=== PATIENT | female | born 1945 | race Caucasian/White ===

== ENCOUNTER 2017-04-03 08:56 | Emergency (ER) | payer MEDICARE, OTHER ==
[2017-04-03 09:23] VITALS: BP 166/84
--- NOTE | 2017-04-03 10:47 | EDM.PDOC ---
ED HPI GENERAL MEDICAL PROBLEM - General Chief Complaint: General Stated Complaint: DIZZINESS Time Seen by Provider: 04/03/17 09:05 Source of Information: Reports: Patient, Significant Other History Limitations: Reports: No Limitations - History of Present Illness INITIAL COMMENTS - FREE TEXT/NARRATIVE: Patient comes in with about a week history of positional lightheadedness/ dizziness. She was seen in clinic last week and put on antibiotics for sinusitis and 12.5 mg meclizine as needed. The symptoms improved the first few days but were worse again today. Onset: Gradual Onset Date: 03/27/17 Onset Time: 10:00 Duration: Day(s):, Waxing/Waning Location: Reports: Head Severity: Moderate Improves with: Reports: Medication Worsens with: Reports: Movement Associated Symptoms: Denies: Confusion, Chest Pain, Diaphoresis, Fever/Chills, Headaches, Rash, Seizure, Shortness of Breath, Weakness (patient states feels occasional palpitations and anxiety when moving around and dizzy. Has noted increased BP when anxious. Symptoms resolve at rest.) - Related Data Allergies Allergy/AdvReac Type Severity Reaction Status Date / Time atorvastatin [From Lipitor] Allergy Other Verified 04/03/17 09:14 ezetimibe [From Zetia] Allergy Other Verified 04/03/17 09:14 Home Meds: Home Meds ALPRAZolam [Xanax] 0.25 mg PO DAILY PRN 07/19/16 [History] Acetaminophen [Tylenol Extra Strength] 250 mg PO Q4H PRN 07/19/16 [History] Acetaminophen/Diphenhydramine [Tylenol Pm Ex-Strength Caplet] 2 tab PO BEDTIME PRN 07/19/16 [History] Calcium Carbonate/Vitamin D3 [Calcium 500-Vit D3 200 Caplet] 1 tab PO DAILY 03/27 [History] Cyanocobalamin (Vitamin B-12) [Vitamin B-12] 500 mcg PO DAILY 07/19/16 [History] Lisinopril [Zestril] 30 mg PO DAILY 07/19/16 [History] Pravastatin [Pravachol] 20 mg PO DAILY 07/19/16 [History] SUMAtriptan [Imitrex] 50 mg PO DAILY PRN MDD 100 mg 07/19/16 [History] Sertraline [Zoloft] 25 mg PO DAILY 07/19/16 [History] Verapamil [Calan SR] 240 mg PO DAILY 07/19/16 [History] Acetaminophen/HYDROcodone [[place] 325-5 MG] 1 tab PO Q4H #30 tablet 07/22/16 [Rx] Docusate Sodium [Colace] 100 mg PO DAILY #30 cap 07/22/16 [Rx] Enoxaparin Sodium [Lovenox] 30 mg SQ BID #8 ml 07/22/16 [Rx] Sulfamethoxazole/Trimethoprim [IJD: Sulfamethoxazole/Trimethoprim DS] 1 tab PO BID 3 Days tablet 07/22/16 [Rx] Past Medical History Cardiovascular History: Reports: High Cholesterol, Hypertension Gastrointestinal History: Reports: GERD, Hiatal Hernia Other Genitourinary History: overactive bladder Other OB/BYN History: hysterctomy Musculoskeletal History: Reports: Arthritis Neurological History: Reports: Migraines Psychiatric History: Reports: Anxiety Endocrine/Metabolic History: Reports: Obesity/BMI 30+ Oncologic (Cancer) History: Reports: Breast Other Oncologic History: left - Infectious Disease History Infectious Disease History: Reports: Chicken Pox, Mumps - Past Surgical History HEENT Surgical History: Reports: Tonsillectomy GI Surgical History: Reports: Appendectomy, Hernia Repair/Other Female Surgical History: Reports: Hysterectomy Musculoskeletal Surgical History: Reports: Arthroscopic Knee, Knee Replacement Oncologic Surgical History: Reports: Lumpectomy, Mastectomy Social & Family History - Family History Family Medical History: Noncontributory - Tobacco Use Smoking Status *Q: Never Smoker Second Hand Smoke Exposure: No - Caffeine Use Caffeine Use: Reports: Coffee - Recreational Drug Use Recreational Drug Use: No ED ROS GENERAL - Review of Systems Review Of Systems: See Below Constitutional: Reports: No Symptoms HEENT: Reports: Rhinitis, Sinus Problem. Denies: Ear Pain, Hearing Loss, Vertigo, Vision Change Respiratory: Reports: No Symptoms Cardiovascular: Reports: Blood Pressure Problem, Lightheadedness, Palpitations. Denies: Chest Pain, Dyspnea on Exertion, Edema, Orthopnea, Syncope Endocrine: Reports: No Symptoms GI/Abdominal: Reports: No Symptoms : Reports: No Symptoms Musculoskeletal: Reports: No Symptoms Skin: Reports: No Symptoms Neurological: Reports: Dizziness. Denies: Confusion, Headache, Numbness, Paresthesia, Seizure, Syncope, Tingling, Tremors, Trouble Speaking, Difficulty Walking, Weakness, Change in Speech, Gait Disturbance Psychiatric: Reports: Anxiety Hematologic/Lymphatic: Reports: No Symptoms Immunologic: Reports: No Symptoms ED EXAM, GENERAL - Physical Exam Exam: See Below Exam Limited By: No Limitations General Appearance: Alert, WD/WN, No Apparent Distress Eye Exam: Bilateral Eye: EOMI, PERRL Ears: Normal External Exam, Normal Canal, Hearing Grossly Normal, Normal TMs Ear Exam: Bilateral Ear: Auricle Normal, Canal Normal, TM normal Nose: Normal Inspection, Normal Mucosa, No Blood Throat/Mouth: Normal Inspection, Normal Lips, Normal Teeth, Normal Gums, Normal Oropharynx, Normal Voice, No Airway Compromise Head: Atraumatic, Normocephalic Neck: Normal Inspection, Supple, Non-Tender, Full Range of Motion Respiratory/Chest: No Respiratory Distress, Lungs Clear, Normal Breath Sounds, No Accessory Muscle Use, Chest Non-Tender Cardiovascular: Normal Peripheral Pulses, Regular Rate, Rhythm, No Edema, No Gallop, No JVD, No Murmur, No Rub Peripheral Pulses: 3+: Brachial (L), Brachial (R), Dorsalis Pedis (L), Dorsalis Pedis (R) GI/Abdominal: Normal Bowel Sounds, Soft, Non-Tender, No Organomegaly, No Distention, No Abnormal Bruit, No Mass (Female) Exam: Deferred Rectal (Female) Exam: Deferred Back Exam: Normal Inspection, Full Range of Motion, NT Extremities: Normal Inspection, Normal Range of Motion, Non-Tender, Normal Capillary Refill, No Pedal Edema Neurological: Alert, Oriented, CN II-XII Intact, Normal Cognition, Normal Gait, Normal Reflexes, No Motor/Sensory Deficits, Other (Romberg negative. orthostatic VS negative without orthostatic drop. Motor and neuro exam complettely within normal limits except for subjective sensation of lightheadedness/dizziness aggravated by position change. No Ptosis or nystagmus noted.) Psychiatric: Normal Affect, Normal Mood Skin Exam: Warm, Dry, Intact, Normal Color, No Rash Lymphatic: No Adenopathy EKG INTERPRETATION EKG Date: 04/03/17 Time: 10:30 Rhythm: NSR Rate (Beats/Min): 72 [place]: Other (moderate intraventricular conduction delay) P-Wave: Present ST-T: Normal QT: Normal Comparison: NA - No Prior EKG (sinus rhythm with intraventricular conduction delay, poor R wave progression, no acute change and no previous to compare to.) Course - Vital Signs Last Recorded V/S: Last Vital Signs Temp 36.1 C 04/03/17 09:00 Pulse 79 04/03/17 09:00 Resp 16 04/03/17 09:00 BP 166/84 H 04/03/17 09:00 Pulse Ox Orthostatic Blood Pressure [ 171/72 Standing] Orthostatic Blood Pressure [ 161/66 Sitting] Orthostatic Blood Pressure [ 148/69 Supine] - Orders/Labs/Meds Orders: Active Orders 24 hr Category Date Time Status EKG 12 Lead [EKG Documentation Completion] [RC] STAT Care 04/03/17 09:53 Ordered Orthostatic Vital Signs [RC] ASDIRECTED Care 04/03/17 10:50 Active Head wo Cont [CT] Stat Exams 04/03/17 09:52 Taken Labs: Laboratory Tests 04/03/17 04/03/17 Range/Units 10:00 10:00 WBC 4.5 (4.0-10.0) x10^3/uL RBC 4.65 (4.00-5.50) x10^6/uL Hgb 14.7 D (12.0-16.0) g/dL Hct 43.5 (33.0-47.0) % MCV 93.5 H (78.0-93.0) fL MCH 31.6 (26.0-32.0) pg MCHC 33.8 (32.0-36.0) g/dL RDW Coeff of Deepika 13.1 (10.0-15.0) % Plt Count 214 D (130-400) x10^3/uL Neut % (Auto) 64.2 (50.0-80.0) % Lymph % (Auto) 22.6 L (25.0-50.0) % [place] % (Auto) 9.4 (2.0-11.0) % Eos % (Auto) 3.6 (0.0-4.0) % Baso % (Auto) 0.2 (0.2-1.2) % Sodium 144 (136-145) mmol/L Potassium 4.0 (3.5-5.1) mmol/L Chloride 107 (98-107) mmol/L Carbon Dioxide 28 (21-32) mmol/L BUN 20 H (7-18) mg/dL Creatinine 1.0 (0.55-1.02) mg/dL Est Cr Clr Drug Dosing 47.78 mL/min Estimated GFR (MDRD) 55 Glucose 103 (74-106) mg/dL Calcium 9.0 (8.5-10.1) mg/dL - Radiology Interpretation Free Text/Narrative:: CT of head read by radiology as no acute findings - Re-Assessments/Exams Free Text/Narrative Re-Assessment/Exam: 04/03/17 11:26 Patient carefully evaluated for any focal neurologic or motor deficit and none found. CT of head, EKG, and lab findings were within normal limits. History reviewed and Patient has history of benign positional vertigo. States symptoms were milder in the past than this. Results of exam and diagnostics and differential diagnosis discussed in detail with patient and . See discharge instructions for further recommendations. Patient advised of differential diagnosis and what symptoms to watch for that require urgent re- evaluation. They voiced understanding. Departure - Departure Time of Disposition: 15:00 Disposition: Home, Self-Care 01 Condition: Good Clinical Impression: Positional lightheadedness - Discharge Information Instructions: Dizziness Referrals: Kaycee Arceo MD [Primary Care Provider] - Forms: ED Department Discharge Additional Instructions: Increase your meclizine to 25 mg four times daily. Take on a scheduled basis. Please try to get in to see Dr Lobo for further evaluation early this week. Return to ER if you develop any facial droop, confusion, difficulty walking or talking or any symptoms suggestive of a stroke. - My Orders Last 24 Hours: My Active Orders 04/03/17 09:52 Head wo Cont [CT] Stat 04/03/17 09:53 EKG 12 Lead [EKG Documentation Completion] [RC] STAT 04/03/17 10:50 Orthostatic Vital Signs [RC] ASDIRECTED - Assessment/Plan Last 24 Hours: My Active Orders 04/03/17 09:52 Head wo Cont [CT] Stat 04/03/17 09:53 EKG 12 Lead [EKG Documentation Completion] [RC] STAT 04/03/17 10:50 Orthostatic Vital Signs [RC] ASDIRECTED
== END 2017-04-03 11:06 | disposition home or self-care (01) ==
LOC: VM.ED 08:56
DX: R42 Dizziness and giddiness (principal); K21.9 Gastro-esophageal reflux disease without esophagitis; E78.00 Pure hypercholesterolemia, unspecified; I10 Essential (primary) hypertension; Z90.710 Acquired absence of both cervix and uterus; E66.9 Obesity, unspecified; G43.909 Migraine, unspecified, not intractable, without status migrainosus; F41.9 Anxiety disorder, unspecified; Z79.899 Other long term (current) drug therapy; Z88.8 Allergy status to other drugs, medicaments and biological substances; Z90.89 Acquired absence of other organs; Z68.33 Body mass index [BMI] 33.0-33.9, adult
CPT/HCPCS: 36415; 70450; 80048; 85025; 93005; 93010; 99284; 99284-GF-25

== ENCOUNTER 2018-11-29 00:30 | Observation (INO) | payer MEDICARE, OTHER ==
[2018-11-29] MEDS ORDERED: Sodium Chloride 0.9% 10 ML Syringe FLUSH PRN (00:47)
[2018-11-29] MEDS ORDERED: Diltiazem 50 MG/10 ML SDV IVPUSH ONE (00:49)
[2018-11-29] MEDS ORDERED: Aspirin 81 MG Tab.Chew PO ONE (00:50)
--- NOTE | 2018-11-29 00:56 | EDM.PDOC ---
ED HPI GENERAL MEDICAL PROBLEM - General Chief Complaint: Cardiovascular Problem Stated Complaint: Racing Heart Time Seen by Provider: 11/29/18 00:47 Source of Information: Reports: Patient History Limitations: Reports: No Limitations - History of Present Illness INITIAL COMMENTS - FREE TEXT/NARRATIVE: Patient comes in with complaints of a racing heartbeat since this afternoon around 4 pm. She states it has continued throughout the evening. She does state she has had periods where this has happened before but they have resolved spontaneously in a much quicker period of time. Denies any history of known SVT , a-fib/a-flutter, no prior MT, no stroke, no thyroid problems. She has had some sinus congestion over the last week and has been taking OTC medication with pseudoephedrine in it. She says she has been taking it every 4 hours. Reports maxillary sinus pressure bilaterally. States she has a history of HTN and is taking verapamil and lisinopril. Denies abdominal pain, SOB, urinary of bowel problems. No blood in urine or stool. She also denies any recent falls or trauma. Denies smoking, drug use and has rare alcoholic beverage. Onset: Today, Sudden Duration: Intermittent Location: Reports: Chest Associated Symptoms: Reports: No Other Symptoms - Related Data Allergies Allergy/AdvReac Type Severity Reaction Status Date / Time atorvastatin [From Lipitor] Allergy Other Verified 11/29/18 01:53 ezetimibe [From Zetia] Allergy Other Verified 11/29/18 01:53 Home Meds: Home Meds ALPRAZolam [Xanax] 0.25 mg PO BEDTIME PRN 07/19/16 [History] Calcium Carbonate/Vitamin D3 [Calcium 500-Vit D3 200 Caplet] 1 tab PO DAILY 03/27 [History] Cyanocobalamin (Vitamin B-12) [Vitamin B-12] 500 mcg PO DAILY 07/19/16 [History] Lisinopril [Zestril] 30 mg PO DAILY 07/19/16 [History] Pravastatin [Pravachol] 80 mg PO Q48H 07/19/16 [History] SUMAtriptan [Imitrex] 50 mg PO DAILY PRN MDD 100 mg 07/19/16 [History] Verapamil [Calan SR] 240 mg PO DAILY 07/19/16 [History] Ferrous Gluconate [Iron] 236 mg PO DAILY 11/29/18 [History] Melatonin/Pyridoxine HCl (B6) [Melatonin 3 mg Tablet] 3 mg PO BEDTIME 11/29/18 [ History] Naproxen Sodium 220 mg PO BID PRN 11/29/18 [History] Past Medical History Cardiovascular History: Reports: High Cholesterol, Hypertension Gastrointestinal History: Reports: GERD, Hiatal Hernia Other Genitourinary History: overactive bladder 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 Musculoskeletal History: Reports: Arthritis Neurological History: Reports: Migraines Psychiatric History: Reports: Anxiety Endocrine/Metabolic History: Reports: Obesity/BMI 30+ Oncologic (Cancer) History: Reports: Breast Other Oncologic History: left - Infectious Disease History Infectious Disease History: Reports: Chicken Pox, Mumps - Past Surgical History HEENT Surgical History: Reports: Tonsillectomy GI Surgical History: Reports: Appendectomy, Hernia Repair/Other Female Surgical History: Reports: Hysterectomy Musculoskeletal Surgical History: Reports: Arthroscopic Knee, Knee Replacement Oncologic Surgical History: Reports: Lumpectomy, Mastectomy Social & Family History - Family History Family Medical History: Noncontributory - Caffeine Use Caffeine Use: Reports: Coffee ED ROS GENERAL - Review of Systems Review Of Systems: See Below Constitutional: Reports: No Symptoms HEENT: Reports: No Symptoms Respiratory: Reports: No Symptoms Cardiovascular: Reports: Palpitations Endocrine: Reports: No Symptoms GI/Abdominal: Reports: No Symptoms : Reports: No Symptoms Musculoskeletal: Reports: No Symptoms Skin: Reports: No Symptoms Neurological: Reports: No Symptoms Psychiatric: Reports: No Symptoms Hematologic/Lymphatic: Reports: No Symptoms Immunologic: Reports: No Symptoms ED EXAM, GENERAL - Physical Exam Exam: See Below Exam Limited By: No Limitations General Appearance: Alert, WD/WN, No Apparent Distress Eye Exam: Bilateral Eye: EOMI, Normal Inspection, PERRL Ears: Normal TMs Nose: Normal Inspection, Normal Mucosa, No Blood Throat/Mouth: Normal Inspection, Normal Lips, Normal Teeth, Normal Gums, Normal Oropharynx, Normal Voice, No Airway Compromise Head: Atraumatic, Normocephalic Neck: Lymphadenopathy (L), Lymphadenopathy (R) (bilateral anterior cervial lymphadenopathy) Respiratory/Chest: No Respiratory Distress, Lungs Clear, Normal Breath Sounds, No Accessory Muscle Use, Chest Non-Tender Cardiovascular: No Edema, No Gallop, No JVD, No Murmur, Irregularly Irregular Peripheral Pulses: 2+: Posterior Tibial (L), Posterior Tibial (R), Dorsalis Pedis (L), Dorsalis Pedis (R) GI/Abdominal: Normal Bowel Sounds, Soft, Non-Tender, No Organomegaly, No Distention, No Abnormal Bruit, No Mass Back Exam: Normal Inspection, Full Range of Motion, NT Extremities: Normal Inspection, Normal Range of Motion, Non-Tender, Normal Capillary Refill, No Pedal Edema Neurological: Alert, Oriented, CN II-XII Intact, Normal Cognition, Normal Gait, Normal Reflexes, No Motor/Sensory Deficits Psychiatric: Normal Affect, Normal Mood Skin Exam: Warm, Dry, Intact, Normal Color, No Rash Lymphatic: Other (as described above) EKG INTERPRETATION EKG Date: 11/29/18 Time: 00:35 Rhythm: A-Fib Rate (Beats/Min): 79 [place]: Normal P-Wave: Absent QRS: Normal QT: Normal Comparison: Change From Previous EKG EKG Interpretation Comments: atrial fibrillation LVH with IVCD Course - Vital Signs Last Recorded V/S: Last Vital Signs Temp 36.8 C 11/29/18 05:28 Pulse 81 11/29/18 05:28 Resp 16 11/29/18 05:28 BP 141/69 H 11/29/18 05:28 Pulse Ox 94 L 11/29/18 05:28 - Orders/Labs/Meds Orders: Active Orders 24 hr Category Date Time Status Chest 1V Frontal [CR] Stat Exams 11/29/18 00:47 Taken Sodium Chloride 0.9% [Saline Flush] Med 11/29/18 00:47 Active 10 ml FLUSH ASDIRECTED PRN Saline Lock Insert [OM.PC] Routine Oth 11/29/18 00:47 Ordered Medication Orders Alprazolam (Xanax) 0.25 mg PO BEDTIME PRN PRN Reason: Anxiety Calcium Carbonate (Calcium Carbonate/Vitamin D 1250 Mg-200 Unit) 1 tab PO DAILY LETTY Cyanocobalamin (Vitamin B12) 500 mcg PO DAILY LETTY Diltiazem HCl 100 mg/ Sodium (Chloride) 100 mls @ 5 mls/hr IV TITRATE LETTY; Protocol Last Admin: 11/29/18 02:17 Dose: 5 mg/hr, 5 mls/hr Sodium Chloride (Normal Saline) 1,000 mls @ 75 mls/hr IV ASDIRECTED LETTY Last Admin: 11/29/18 05:41 Dose: 75 mls/hr Lisinopril (Prinivil) 30 mg PO DAILY LETTY Non-Formulary Medication (Ferrous Gluconate [Iron]) 236 mg PO DAILY LETTY Non-Formulary Medication (Melatonin/Pyridoxine Hcl (B6) [Melatonin 3 Mg Tablet] ) 3 mg PO BEDTIME LETTY Non-Formulary Medication (Pravastatin [Pravachol]) 80 mg PO Q48H LETTY Sodium Chloride (Saline Flush) 10 ml FLUSH ASDIRECTED PRN PRN Reason: Keep Vein Open Sumatriptan Succinate (Imitrex) 50 mg PO DAILY PRN PRN Reason: migraine Verapamil HCl (Calan Sr) 240 mg PO DAILY LETTY Labs: Laboratory Tests 11/29/18 11/29/18 11/29/18 Range/Units 00:50 00:58 00:58 WBC 5.3 (4.0-10.0) x10^3/uL RBC 4.96 (4.00-5.50) x10^6/uL Hgb 15.8 (12.0-16.0) g/dL Hct 47.2 H (33.0-47.0) % MCV 95.2 H (78.0-93.0) fL MCH 31.9 (26.0-32.0) pg MCHC 33.5 (32.0-36.0) g/dL RDW Coeff of Deepika 13.0 (10.0-15.0) % Plt Count 235 (130-400) x10^3/uL Neut % (Auto) 52.5 (50.0-80.0) % Lymph % (Auto) 34.6 (25.0-50.0) % [place] % (Auto) 10.0 (2.0-11.0) % Eos % (Auto) 2.5 (0.0-4.0) % Baso % (Auto) 0.4 (0.2-1.2) % PT 10.9 (10.0-12.8) SEC INR 1.0 L (2.0-3.5) Sodium (136-145) mmol/L Potassium (3.5-5.1) mmol/L Chloride (98-107) mmol/L Carbon Dioxide (21-32) mmol/L Anion Gap (10-20) mmol/L BUN (7-18) mg/dL Creatinine (0.55-1.02) mg/dL Est Cr Clr Drug Dosing Estimated GFR (MDRD) Glucose (74-106) mg/dL Calcium (8.5-10.1) mg/dL Corrected Calcium (8.5-10.1) mg/dL Magnesium (1.8-2.4) mg/dL Total Bilirubin (0.2-1.0) mg/dL AST (15-37) U/L ALT (14-59) U/L Alkaline Phosphatase (46-116) U/L Troponin I (0.00-0.08) ng/mL NT-Pro-B Natriuret Pep (<=125) pg/mL Total Protein (6.4-8.2) g/dL Albumin (3.4-5.0) g/dL Globulin Albumin/Globulin Ratio TSH, Ultra Sensitive (0.358-3.74) uIU/mL Urine Color Yellow (YELLOW) Urine Appearance Clear (CLEAR) Urine pH 7.0 (5.0-8.0) Ur Specific Bells 1.015 Urine Protein Negative (NEGATIVE) mg/dL Urine Glucose (UA) Negative (NEGATIVE) mg/dL Urine Ketones Negative (NEGATIVE) mg/dL Urine Occult Blood Trace-intact H (NEGATIVE) Urine Nitrite Negative (NEGATIVE) Urine Bilirubin Negative (NEGATIVE) Urine Urobilinogen 0.2 (0.2) EU/dL Ur Leukocyte Esterase Negative (NEGATIVE) Urine RBC 5-10 H (NOT SEEN) /HPF Urine WBC 0-5 (NOT SEEN) /HPF Ur Squamous Epith Cells Few H (NEGATIVE) /HPF 11/29/18 11/29/18 Range/Units 00:58 01:26 WBC (4.0-10.0) x10^3/uL RBC (4.00-5.50) x10^6/uL Hgb (12.0-16.0) g/dL Hct (33.0-47.0) % MCV (78.0-93.0) fL MCH (26.0-32.0) pg MCHC (32.0-36.0) g/dL RDW Coeff of Deepika (10.0-15.0) % Plt Count (130-400) x10^3/uL Neut % (Auto) (50.0-80.0) % Lymph % (Auto) (25.0-50.0) % [place] % (Auto) (2.0-11.0) % Eos % (Auto) (0.0-4.0) % Baso % (Auto) (0.2-1.2) % PT (10.0-12.8) SEC INR (2.0-3.5) Sodium 147 H (136-145) mmol/L Potassium 3.9 (3.5-5.1) mmol/L Chloride 107 (98-107) mmol/L Carbon Dioxide 28 (21-32) mmol/L Anion Gap 15.9 (10-20) mmol/L BUN 22 H (7-18) mg/dL Creatinine 0.8 (0.55-1.02) mg/dL Est Cr Clr Drug Dosing TNP Estimated GFR (MDRD) > 60 Glucose 108 H (74-106) mg/dL Calcium 9.8 (8.5-10.1) mg/dL Corrected Calcium 9.80 (8.5-10.1) mg/dL Magnesium 2.2 (1.8-2.4) mg/dL Total Bilirubin 0.3 (0.2-1.0) mg/dL AST 30 (15-37) U/L ALT 37 (14-59) U/L Alkaline Phosphatase 105 (46-116) U/L Troponin I 0.02 (0.00-0.08) ng/mL NT-Pro-B Natriuret Pep 119 (<=125) pg/mL Total Protein 7.6 (6.4-8.2) g/dL Albumin 4.0 (3.4-5.0) g/dL Globulin 3.6 Albumin/Globulin Ratio 1.11 TSH, Ultra Sensitive 1.189 (0.358-3.74) uIU/mL Urine Color (YELLOW) Urine Appearance (CLEAR) Urine pH (5.0-8.0) Ur Specific Bells Urine Protein (NEGATIVE) mg/dL Urine Glucose (UA) (NEGATIVE) mg/dL Urine Ketones (NEGATIVE) mg/dL Urine Occult Blood (NEGATIVE) Urine Nitrite (NEGATIVE) Urine Bilirubin (NEGATIVE) Urine Urobilinogen (0.2) EU/dL Ur Leukocyte Esterase (NEGATIVE) Urine RBC (NOT SEEN) /HPF Urine WBC (NOT SEEN) /HPF Ur Squamous Epith Cells (NEGATIVE) /HPF Meds: Medications Generic Name Dose Route Start Last Admin Trade Name Tonyq PRN Reason Stop Dose Admin Alprazolam 0.25 mg 11/29/18 07:03 Xanax PO BEDTIME PRN Anxiety Calcium Carbonate 1 tab 11/29/18 08:00 Calcium Carbonate/Vitamin D 1250 Mg-200 Unit PO DAILY [facility] Cyanocobalamin 500 mcg 11/29/18 08:00 Vitamin B12 PO DAILY LETTY Diltiazem HCl 100 mg/ Sodium 100 mls @ 5 mls/hr 11/29/18 02:15 11/29/18 02:17 Chloride IV 5 mg/hr TITRATE LETTY 5 mls/hr Administration Protocol 5 MG/HR Sodium Chloride 1,000 mls @ 75 mls/hr 11/29/18 03:00 11/29/18 05:41 Normal Saline IV 75 mls/hr ASDIRECTED LETTY Administration Lisinopril 30 mg 11/29/18 08:00 Prinivil PO DAILY LETTY Non-Formulary Medication 236 mg 11/29/18 08:00 Ferrous Gluconate [Iron] PO DAILY LETTY Non-Formulary Medication 3 mg 11/29/18 20:00 Melatonin/Pyridoxine Hcl (B6) [Melatonin 3 Mg Tablet] PO BEDTIME LETTY Non-Formulary Medication 80 mg 11/29/18 07:15 Pravastatin [Pravachol] PO Q48H LETTY Sodium Chloride 10 ml 11/29/18 00:47 Saline Flush FLUSH ASDIRECTED PRN Keep Vein Open Sumatriptan Succinate 50 mg 11/29/18 07:03 Imitrex PO DAILY PRN migraine Verapamil HCl 240 mg 11/29/18 08:00 Calan Sr PO DAILY LETTY Discontinued Medications Generic Name Dose Route Start Last Admin Trade Name Tonyq PRN Reason Stop Dose Admin Aspirin 324 mg 11/29/18 00:50 11/29/18 01:05 Aspirin PO 11/29/18 00:51 324 mg ONETIME ONE Administration Diltiazem HCl 25 mg 11/29/18 00:49 11/29/18 01:06 Cardizem IVPUSH 11/29/18 00:50 25 mg ONETIME ONE Administration Sodium Chloride 1,000 mls @ 999 mls/hr 11/29/18 01:00 11/29/18 01:06 Normal Saline IV 999 mls/hr ASDIRECTED LETTY Administration Departure - Departure Time of Disposition: 02:40 Disposition: Refer to Observation Condition: Good Clinical Impression: Atrial fibrillation ED Communication - ED Communication Date/Time Date: 11/29/18 Time Called: 02:30 - Discussed Case With (1) Discussed Case With (1): Other (Dr. Cash Landa contacted regarding patient. He did not admit but did suggest observation. She will be admitted observation and I will contact her primary care provider in the morning.) - Problem List & Annotations (1) Atrial fibrillation SNOMED Code(s): 42706094 Code(s): I48.91 - UNSPECIFIED ATRIAL FIBRILLATION Status: Acute Priority : Medium Current Visit: Yes Qualifiers: Atrial fibrillation type: unspecified Qualified Code(s): I48.91 - Unspecified atrial fibrillation - Problem List Review Problem List Initiated/Reviewed/Updated: Yes - My Orders Last 24 Hours: My Active Orders 11/29/18 00:47 Chest 1V Frontal [CR] Stat Sodium Chloride 0.9% [Saline Flush] 10 ml FLUSH ASDIRECTED PRN Saline Lock Insert [OM.PC] Routine - Assessment/Plan Last 24 Hours: My Active Orders 11/29/18 00:47 Chest 1V Frontal [CR] Stat Sodium Chloride 0.9% [Saline Flush] 10 ml FLUSH ASDIRECTED PRN Saline Lock Insert [OM.PC] Routine Assessment:: atrial fibrillation Plan: Plan admit to observation. Will start on cardizem drip at 5 mg/hr. Will contact her primary care in AM for additional follow-up. Fluids at 75 mL/hr. Put on telemetry, SCD's. I think a-fib is secondary to the cold and flu OTC medication she has been taking with the pseudoephedrine. Will hold this medication as well.
[2018-11-29] MEDS ORDERED: Sodium Chloride 0.9% 1,000 ML IV SCH ×2 (01:00→03:00)
[2018-11-29 01:37] LABS: ANION GAP 15.9 mmol/L (10-20); CHLORIDE,CL 107 mmol/L (98-107); SODIUM,NA 147 mmol/L (136-145)
[2018-11-29] MEDS ORDERED: Diltiazem 100 MG in Sodium Chloride 0.9% 100 ML IV SCH (02:15)
[2018-11-29] MEDS ORDERED: SUMAtriptan 50 MG Tab PO PRN (07:03)
[2018-11-29] MEDS ORDERED: ALPRAZolam 0.25 MG Tab PO PRN (07:03)
[2018-11-29] MEDS ORDERED: Acetaminophen/Aspirin/Caffeine 250-250-65 MG Tab PO PRN (07:26)
[2018-11-29] MEDS ORDERED: Calcium Carbonate/Vitamin D3 1250 MG-200 Unit Tab PO SCH (08:00)
[2018-11-29] MEDS ORDERED: Cyanocobalamin (Vitamin B12) 250 MCG Tab PO SCH (08:00)
[2018-11-29] MEDS ORDERED: Verapamil 240 MG Tab.ER PO SCH (08:00)
[2018-11-29] MEDS ORDERED: Lisinopril 10 MG Tab PO SCH (08:00)
[2018-11-29] MEDS ORDERED: Ferrous Sulfate 325 MG Tab PO SCH (08:00)
[2018-11-29] MEDS ORDERED: Aspirin 81 MG Tab.EC PO SCH (08:00)
[2018-11-29] MEDS ORDERED: Amoxicillin/Clavulanate K 875-125 MG Tab PO SCH (08:36)
[2018-11-29] MEDS ORDERED: Metoprolol Tartrate 25 MG Tab PO PRN (08:36)
--- NOTE | 2018-11-29 08:51 | CR ---
[id number] RAD/RAD Chest PA or AP 1V EXAM: RAD Chest PA or AP 1V INDICATION: PALPITATIONS COMPARISON: None. DISCUSSION: Low lung volumes result in bibasilar vascular crowding and atelectasis. Blunting of the left costophrenic sulci is nonspecific but suggest underlying effusion. The lung base parenchymal opacification is also nonspecific and most likely sequela of either atelectasis or developing pneumonia. Correlate for signs of infection. Post surgical change projects over the left hemithorax, including the axilla. IMPRESSION: As above. Jesus Santoro MD 11/29/18 0849 Thank you for allowing us to participate in the care of your patient.
[2018-11-29 11:05] VITALS: BP 150/79
[2018-11-29] MEDS ORDERED: Melatonin 3 MG Tab PO SCH (20:00)
[2018-11-29] MEDS ORDERED: PRAVASTATIN 80 MG PO SCH (20:00)
--- NOTE | 2018-11-29 21:57 | PCM.DCSUM1 ---
Discharge Summary - Hospital Course Free Text/Narrative:: 72 yo with no hx of a. fib presented to ER last evening with a. matt initial HR in 80s but went up to 130-150 overnight so she was placed a on a cardizem drip and converted around 5 am this AM and then the drip was stopped before 8. She has been sick with a cold for 1 month and has had a lot of sinus pain and chills the last 2 days with dizziness. She was taking phenylephrine Q 4 hrs. She has no hx of sleep apnea but is obese, has daytime fatigue but no reports of snoring. ChaDS-VASc 3. HPI Initial Comments: Discussed the risks of a. matt especially stroke if over 48 hrs duration if symptoms return and are severe patient will return. I suspect this episode was related to her infection and the phenylephrine which she will avoid. If her echo shows something like valve problems or a low EF we will start coumadin. Diagnosis: Stroke: No - Discharge Data Discharge Date: 11/29/18 Discharge Disposition: Home, Self-Care 01 Condition: Good - Discharge Diagnosis/Problem(s) (1) Obesity SNOMED Code(s): 119605073, 471308769 ICD Code: E66.9 - OBESITY, UNSPECIFIED Status: Acute Priority: Medium Qualifiers: Obesity type: unspecified obesity type Obesity classification: unspecified obesity classification (2) Sinus infection SNOMED Code(s): 10320660 ICD Code: J32.9 - CHRONIC SINUSITIS, UNSPECIFIED Status: Acute Qualifiers: Sinusitis location: frontal Chronicity: acute Recurrence: non-recurrent Qualified Code(s): J01.10 - Acute frontal sinusitis, unspecified (3) Atrial fibrillation SNOMED Code(s): 18210158 ICD Code: I48.91 - UNSPECIFIED ATRIAL FIBRILLATION Status: Acute Priority : Medium Qualifiers: Atrial fibrillation type: unspecified Qualified Code(s): I48.91 - Unspecified atrial fibrillation (4) Hyperlipidemia, unspecified SNOMED Code(s): 06313769 ICD Code: E78.5 - HYPERLIPIDEMIA, UNSPECIFIED Status: Chronic Qualifiers: Hyperlipidemia type: unspecified Qualified Code(s): E78.5 - Hyperlipidemia , unspecified (5) Hypertension, essential, benign SNOMED Code(s): 7541721 ICD Code: I10 - ESSENTIAL (PRIMARY) HYPERTENSION Status: Chronic Priority : Medium - Patient Instructions Diet: Heart Healthy Diet Activity: As Tolerated Driving: May Drive Today Notify Provider of: Fever, Increased Pain, Drainage, Nausea and/or Vomiting Other/Special Instructions: Recheck in February or sooner if needed. Sleep center visit at [facility] through [facility] will be arranged. Echo test to check heart function at the [facility] they will call with an appt date and time. Take the Augmentin 875 twice daily for 5 days. Take yogurt or a probiotic twice daily 2 hrs after the dose now and for 2 weeks after finishing to prevent diarrhea. Continue the saline rinses. Stop and avoid any meds with Sudafed or phenylephrine. Start Asa 162 mg daily avoid advil, aleve, and motrin while using aspirin. Metoprolol a short acting medication started that you can take if you feel fast heart rates and then you can sit and relax but if the fast irregular heart rates keep up over 12 hrs come in or come in sooner if you are uncomfortable with chest pain or shortness of breath. We do not want you to stay in the irregular heart rate over 48 hrs because it will increase your risk of stroke - Discharge Plan Prescriptions/Med Rec: Amoxicillin/Clavulanate K [Augmentin 875-125 MG] 1 tab PO Q12HR #9 tablet Aspirin 162 mg PO WITHBREAKFAST #60 tab.chew Metoprolol Tartrate [Lopressor] 25 mg PO Q6H PRN #10 tablet PRN Reason: Tachycardia Home Medications: Home Meds ALPRAZolam [Xanax] 0.25 mg PO BEDTIME PRN 07/19/16 [History] Calcium Carbonate/Vitamin D3 [Calcium 500-Vit D3 200 Caplet] 1 tab PO DAILY 03/27 [History] Cyanocobalamin (Vitamin B-12) [Vitamin B-12] 500 mcg PO DAILY 07/19/16 [History] Lisinopril [Zestril] 30 mg PO DAILY 07/19/16 [History] Pravastatin [Pravachol] 80 mg PO Q48H 07/19/16 [History] SUMAtriptan [Imitrex] 50 mg PO DAILY PRN MDD 100 mg 07/19/16 [History] Verapamil [Calan SR] 240 mg PO DAILY 07/19/16 [History] Amoxicillin/Clavulanate K [Augmentin 875-125 MG] 1 tab PO Q12HR #9 tablet [Rx] Aspirin 162 mg PO WITHBREAKFAST #60 tab.chew 11/29/18 [Rx] Ferrous Gluconate [Iron] 236 mg PO DAILY 11/29/18 [History] Melatonin/Pyridoxine HCl (B6) [Melatonin 3 mg Tablet] 3 mg PO BEDTIME 11/29/18 [ History] Metoprolol Tartrate [Lopressor] 25 mg PO Q6H PRN #10 tablet 11/29/18 [Rx] Forms: ED Department Discharge Referrals: Blanche Rogers DO [Primary Care Provider] - - Discharge Summary/Plan Comment DC Time >30 min.: No - General Info Date of Service: 11/29/18 Functional Status: Reports: Pain Controlled - Review of Systems General: Reports: Chills. Denies: Fever Pulmonary: Reports: No Symptoms. Denies: Shortness of Breath Cardiovascular: Reports: No Symptoms. Denies: Chest Pain Musculoskeletal: Reports: No Symptoms Neurological: Reports: Dizziness - Patient Data Vitals - Most Recent: Last Vital Signs Temp 97.8 F 11/29/18 10:00 Pulse 74 11/29/18 10:00 Resp 16 11/29/18 10:00 BP 150/79 H 11/29/18 10:00 Pulse Ox 95 11/29/18 10:00 Weight - Most Recent: 92.079 kg I&O - Last 24 hours: Intake & Output 11/29/18 11/29/18 11/29/18 06:59 14:59 22:59 Intake Total 361 240 Output Total 800 Balance -439 240 Lab Results - Last 24 hrs: Laboratory Results - last 24 hr 11/29/18 11/29/18 11/29/18 Range/Units 00:50 00:58 00:58 WBC 5.3 (4.0-10.0) x10^3/uL RBC 4.96 (4.00-5.50) x10^6/uL Hgb 15.8 (12.0-16.0) g/dL Hct 47.2 H (33.0-47.0) % MCV 95.2 H (78.0-93.0) fL MCH 31.9 (26.0-32.0) pg MCHC 33.5 (32.0-36.0) g/dL RDW Coeff of Deepika 13.0 (10.0-15.0) % Plt Count 235 (130-400) x10^3/uL Neut % (Auto) 52.5 (50.0-80.0) % Lymph % (Auto) 34.6 (25.0-50.0) % [place]more % (Auto) 10.0 (2.0-11.0) % Eos % (Auto) 2.5 (0.0-4.0) % Baso % (Auto) 0.4 (0.2-1.2) % PT 10.9 (10.0-12.8) SEC INR 1.0 L (2.0-3.5) Sodium (136-145) mmol/L Potassium (3.5-5.1) mmol/L Chloride (98-107) mmol/L Carbon Dioxide (21-32) mmol/L Anion Gap (10-20) mmol/L BUN (7-18) mg/dL Creatinine (0.55-1.02) mg/dL Est Cr Clr Drug Dosing Estimated GFR (MDRD) Glucose (74-106) mg/dL Calcium (8.5-10.1) mg/dL Corrected Calcium (8.5-10.1) mg/dL Magnesium (1.8-2.4) mg/dL Total Bilirubin (0.2-1.0) mg/dL AST (15-37) U/L ALT (14-59) U/L Alkaline Phosphatase (46-116) U/L Troponin I (0.00-0.08) ng/mL NT-Pro-B Natriuret Pep (<=125) pg/mL Total Protein (6.4-8.2) g/dL Albumin (3.4-5.0) g/dL Globulin Albumin/Globulin Ratio TSH, Ultra Sensitive (0.358-3.74) uIU/mL Urine Color Yellow (YELLOW) Urine Appearance Clear (CLEAR) Urine pH 7.0 (5.0-8.0) Ur Specific [place] 1.015 Urine Protein Negative (NEGATIVE) mg/dL Urine Glucose (UA) Negative (NEGATIVE) mg/dL Urine Ketones Negative (NEGATIVE) mg/dL Urine Occult Blood Trace-intact H (NEGATIVE) Urine Nitrite Negative (NEGATIVE) Urine Bilirubin Negative (NEGATIVE) Urine Urobilinogen 0.2 (0.2) EU/dL Ur Leukocyte Esterase Negative (NEGATIVE) Urine RBC 5-10 H (NOT SEEN) /HPF Urine WBC 0-5 (NOT SEEN) /HPF Ur Squamous Epith Cells Few H (NEGATIVE) /HPF 11/29/18 11/29/18 Range/Units 00:58 01:26 WBC (4.0-10.0) x10^3/uL RBC (4.00-5.50) x10^6/uL Hgb (12.0-16.0) g/dL Hct (33.0-47.0) % MCV (78.0-93.0) fL MCH (26.0-32.0) pg MCHC (32.0-36.0) g/dL RDW Coeff of Deepika (10.0-15.0) % Plt Count (130-400) x10^3/uL Neut % (Auto) (50.0-80.0) % Lymph % (Auto) (25.0-50.0) % [place] % (Auto) (2.0-11.0) % Eos % (Auto) (0.0-4.0) % Baso % (Auto) (0.2-1.2) % PT (10.0-12.8) SEC INR (2.0-3.5) Sodium 147 H (136-145) mmol/L Potassium 3.9 (3.5-5.1) mmol/L Chloride 107 (98-107) mmol/L Carbon Dioxide 28 (21-32) mmol/L Anion Gap 15.9 (10-20) mmol/L BUN 22 H (7-18) mg/dL Creatinine 0.8 (0.55-1.02) mg/dL Est Cr Clr Drug Dosing TNP Estimated GFR (MDRD) > 60 Glucose 108 H (74-106) mg/dL Calcium 9.8 (8.5-10.1) mg/dL Corrected Calcium 9.80 (8.5-10.1) mg/dL Magnesium 2.2 (1.8-2.4) mg/dL Total Bilirubin 0.3 (0.2-1.0) mg/dL AST 30 (15-37) U/L ALT 37 (14-59) U/L Alkaline Phosphatase 105 (46-116) U/L Troponin I 0.02 (0.00-0.08) ng/mL NT-Pro-B Natriuret Pep 119 (<=125) pg/mL Total Protein 7.6 (6.4-8.2) g/dL Albumin 4.0 (3.4-5.0) g/dL Globulin 3.6 Albumin/Globulin Ratio 1.11 TSH, Ultra Sensitive 1.189 (0.358-3.74) uIU/mL Urine Color (YELLOW) Urine Appearance (CLEAR) Urine pH (5.0-8.0) Ur Specific [place] Urine Protein (NEGATIVE) mg/dL Urine Glucose (UA) (NEGATIVE) mg/dL Urine Ketones (NEGATIVE) mg/dL Urine Occult Blood (NEGATIVE) Urine Nitrite (NEGATIVE) Urine Bilirubin (NEGATIVE) Urine Urobilinogen (0.2) EU/dL Ur Leukocyte Esterase (NEGATIVE) Urine RBC (NOT SEEN) /HPF Urine WBC (NOT SEEN) /HPF Ur Squamous Epith Cells (NEGATIVE) /HPF Med Orders - Current: Current Medications Discontinued Medications Acetaminophen/Aspirin/Caffeine (Excedrin Extra Strength) 1 tab PO Q4HR PRN PRN Reason: headache Alprazolam (Xanax) 0.25 mg PO BEDTIME PRN PRN Reason: Anxiety Amoxicillin/Clavulanate Potassium (Augmentin 875 Mg/125 Mg) 1 tab PO BIDMEALS [facility] Last Admin: 11/29/18 08:48 Dose: 1 tab Aspirin (Aspirin) 324 mg PO ONETIME ONE Stop: 11/29/18 00:51 Last Admin: 11/29/18 01:05 Dose: 324 mg Aspirin (Halfprin) 162 mg PO WITHBREAKFAST [facility] Last Admin: 11/29/18 08:48 Dose: 162 mg Calcium Carbonate (Calcium Carbonate/Vitamin D 1250 Mg-200 Unit) 1 tab PO DAILY [facility] Last Admin: 11/29/18 07:58 Dose: 1 tab Cyanocobalamin (Vitamin B12) 500 mcg PO DAILY [facility] Last Admin: 11/29/18 07:58 Dose: 500 mcg Diltiazem HCl (Cardizem) 25 mg IVPUSH ONETIME ONE Stop: 11/29/18 00:50 Last Admin: 11/29/18 01:06 Dose: 25 mg Ferrous Sulfate (Ferrous Sulfate) 325 mg PO DAILY [facility] Last Admin: 05/22/19 08:48 Dose: 325 mg Sodium Chloride (Normal Saline) 1,000 mls @ 999 mls/hr IV ASDIRECTED [facility] Last Admin: 11/29/18 01:06 Dose: 999 mls/hr Diltiazem HCl 100 mg/ Sodium (Chloride) 100 mls @ 5 mls/hr IV TITRATE [facility]; Protocol Last Admin: 11/29/18 02:17 Dose: 5 mg/hr, 5 mls/hr Sodium Chloride (Normal Saline) 1,000 mls @ 75 mls/hr IV ASDIRECTED [facility] Last Admin: 11/29/18 05:41 Dose: 75 mls/hr Lisinopril (Prinivil) 30 mg PO DAILY [facility] Last Admin: 11/29/18 07:56 Dose: 30 mg Melatonin (Melatonin) 3 mg PO BEDTIME [facility] Metoprolol Tartrate (Lopressor) 25 mg PO Q6H PRN PRN Reason: Tachycardia Pravastatin [ (Pravachol] 80mg) 0 mg PO Q2D@2000 [facility] Sodium Chloride (Saline Flush) 10 ml FLUSH ASDIRECTED PRN PRN Reason: Keep Vein Open Sumatriptan Succinate (Imitrex) 50 mg PO DAILY PRN PRN Reason: migraine Verapamil HCl (Calan Sr) 240 mg PO DAILY [facility] Last Admin: 11/29/18 07:58 Dose: 240 mg - Exam General: Reports: Alert, Oriented HEENT: Reports: Pupils Equal, Mucous Membr. Moist/[place], Other (frontal sinus tenderness) Neck: Reports: Supple, No JVD, No Thyromegaly Lungs: Reports: Clear to Auscultation, Normal Respiratory Effort Cardiovascular: Reports: Regular Rate, Regular Rhythm Neurological: Reports: No New Focal Deficit Psy/Mental Status: Reports: Alert, Normal Affect
== END 2018-11-29 11:35 | disposition home or self-care (01) ==
LOC: SUPCPDRO 00:30 → VM.ED 00:30 → VM.MS 02:00
PROVIDERS: ADMIT Nurse Practitioner Family; ATTEND Nurse Practitioner Family
DX: I48.91 Unspecified atrial fibrillation (principal); I10 Essential (primary) hypertension; E78.5 Hyperlipidemia, unspecified; E78.00 Pure hypercholesterolemia, unspecified; J01.10 Acute frontal sinusitis, unspecified; M19.90 Unspecified osteoarthritis, unspecified site; E66.9 Obesity, unspecified; Z68.33 Body mass index [BMI] 33.0-33.9, adult; Z88.8 Allergy status to other drugs, medicaments and biological substances; Z79.899 Other long term (current) drug therapy
CPT/HCPCS: 36415; 71045; 80053; 81001; 83735; 83880; 84443; 84484; 85025; 85610; 93005; 96361; 96365; 96376; 99285-25; A9270-GY; G0378; J3490; J7030; J7050

== ENCOUNTER 2020-06-24 23:25 | Emergency (ER) | payer MEDICARE, OTHER ==
--- NOTE | 2020-06-25 00:01 | EDM.PDOC ---
ED HPI GENERAL MEDICAL PROBLEM - General Stated Complaint: Palpitations, fast HR Time Seen by Provider: 06/24/20 23:25 Source of Information: Reports: Patient History Limitations: Reports: No Limitations - History of Present Illness INITIAL COMMENTS - FREE TEXT/NARRATIVE: Pt. presents to ER via private vehicle. Pt. states that she has noticed irregular heart rate shortly before presenting to ER. She has a history of paroxysmal atrial fibrillation and is currently coagulated with coumadin. INR 2 weeks ago was 2.2. she is on toprol XL 25mg daily for rate control. She states that it has been months since she has noticed any irregular heart rate. Pt. had an echo on 12/27. Her EF at that time was 60%. No significant valvular heart disease noted. Denies any fever or chills. No chest pain or shortness of breath. No nausea, vomiting, diarrhea. Denies any rashes. Denies any lightheadedness. Pt. states that she feels stressed and anxious due to recent diagnosis of recurrent breast cancer. Onset: Today Location: Reports: Chest - Related Data Allergies Allergy/AdvReac Type Severity Reaction Status Date / Time ezetimibe [From Zetia] Allergy Other Verified 05/31/19 06:36 ibuprofen Allergy Tachycardia Verified 05/31/19 06:36 atorvastatin [From Lipitor] AdvReac Muscle Verified 05/31/19 06:36 Aches Home Meds: Home Meds ALPRAZolam [Xanax] 0.25 mg PO DAILY PRN 07/19/16 [History] Calcium Carbonate/Vitamin D3 [Calcium 500-Vit D3 200 Caplet] 1 tab PO DAILY 07/19/16 [History] Cyanocobalamin (Vitamin B-12) [Vitamin B-12] 500 mcg PO DAILY 07/19/16 [History] Pravastatin [Pravachol] 80 mg PO Q48H 07/19/16 [History] SUMAtriptan [Imitrex] 50 mg PO Q2HR PRN MDD 100 mg 07/19/16 [History] Verapamil [Calan SR] 240 mg PO DAILY 07/19/16 [History] lisinopriL [Zestril] 30 mg PO DAILY 07/19/16 [History] Ferrous Gluconate [Iron] 236 mg PO DAILY 11/29/18 [History] Metoprolol Tartrate [Lopressor] 25 mg PO Q6H PRN #10 tablet 05/22/19 [Rx] Acetaminophen [Acetaminophen Extra Strength] 250 mg PO Q4H PRN 05/31/19 [History] Acetaminophen/Diphenhydramine [Acetaminophen-Diphenhyd 500-25] 2 tab PO BEDTIME PRN 05/31/19 [History] Melatonin 3 mg PO BEDTIME 05/31/19 [History] Triamcinolone Acetonide [Nasacort] 1 INH 06/04/19 [History] Past Medical History HEENT History: Reports: Sinusitis Other HEENT History: Benign Paroxysmal Vertigo Cardiovascular History: Reports: High Cholesterol, Hypertension Respiratory History: Reports: Other (See Below) Other Respiratory History: Chronic pharyngitis Gastrointestinal History: Reports: Chronic Constipation, Diverticulosis, GERD, Hiatal Hernia Genitourinary History: Reports: Other (See Below) Other Genitourinary History: overactive bladder. 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 Disorder of bone and cartilage Neurological History: Reports: Migraines, Vertigo Other Neuro History: Migraines with aura and without status migrainosus, not intractable. Primary Insomnia Psychiatric History: Reports: Anxiety Other Psychiatric History: Moderate episode of recurrent major depressive disorder (HCC) Endocrine/Metabolic History: Reports: Obesity/BMI 30+ Other Endocrine/Metabolic History: "I have hypoglycemia" Hematologic History: Reports: Other (See Below) Other Hematologic History: Positive TOM (antinuclear antibody) Oncologic (Cancer) History: Reports: Breast Other Oncologic History: left - Infectious Disease History Infectious Disease History: Reports: Chicken Pox, Mumps - Past Surgical History GI Surgical History: Reports: Appendectomy, Hernia Repair/Other Female Surgical History: Reports: Hysterectomy Social & Family History - Family History Family Medical History: No Pertinent Family History Cardiac: Reports: CAD, [place] Endocrine/Metabolic: Reports: Diabetes, type II Immunologic: Reports: None - Caffeine Use Caffeine Use: Reports: None ED ROS GENERAL - Review of Systems Review Of Systems: See Below Constitutional: Reports: No Symptoms HEENT: Reports: No Symptoms Respiratory: Reports: No Symptoms Cardiovascular: Reports: Palpitations. Denies: Chest Pain, Dyspnea on Exertion, Edema, Lightheadedness, Orthopnea, PND, Syncope Endocrine: Reports: No Symptoms GI/Abdominal: Reports: No Symptoms : Reports: No Symptoms Musculoskeletal: Reports: No Symptoms Skin: Reports: No Symptoms Neurological: Reports: No Symptoms Psychiatric: Reports: No Symptoms Hematologic/Lymphatic: Reports: No Symptoms Immunologic: Reports: No Symptoms ED EXAM, GENERAL - Physical Exam Exam: See Below Exam Limited By: No Limitations General Appearance: Alert, WD/WN, No Apparent Distress Throat/Mouth: Normal Inspection, Normal Lips, Normal Teeth, Normal Gums, Normal Oropharynx, No Airway Compromise Head: Atraumatic, Normocephalic Neck: Normal Inspection, Supple, Non-Tender, Full Range of Motion Respiratory/Chest: No Respiratory Distress, Lungs Clear, Normal Breath Sounds, No Accessory Muscle Use, Chest Non-Tender Cardiovascular: Normal Peripheral Pulses, No Edema, No JVD, No Rub, Irregularly Irregular GI/Abdominal: Soft, Non-Tender, No Distention, No Mass (Female) Exam: Deferred Rectal (Female) Exam: Deferred Extremities: Normal Inspection, Normal Range of Motion, Non-Tender, No Pedal Edema, Normal Capillary Refill Neurological: Alert, Oriented, CN II-XII Intact, Normal Cognition, Normal Reflexes, No Motor/Sensory Deficits Psychiatric: Normal Affect, Normal Mood Skin Exam: Warm, Dry, Intact, Normal Color, No Rash Lymphatic: No Adenopathy #1 Interpretation Rhythm: A-Fib Course - Vital Signs Last Recorded V/S: Last Vital Signs Temp 36.8 C 06/24/20 23:25 Pulse 97 06/24/20 23:25 Resp 20 06/24/20 23:25 BP 150/73 H 06/24/20 23:25 Pulse Ox 97 06/24/20 23:25 - Orders/Labs/Meds Orders: Active Orders 24 hr Category Date Time Status Cardiac Monitoring [RC] CONTINUOUS Care 06/24/20 23:35 Active EKG Documentation Completion [RC] STAT Care 06/24/20 23:36 Active Labs: Laboratory Tests 06/24/20 06/24/20 06/24/20 Range/Units 23:56 23:56 23:56 WBC 5.1 (4.0-10.0) x10^3/uL RBC 4.59 (4.00-5.50) x10^6/uL Hgb 14.9 (12.0-16.0) g/dL Hct 43.8 (33.0-47.0) % MCV 95.4 H (78.0-93.0) fL MCH 32.5 H (26.0-32.0) pg MCHC 34.0 (32.0-36.0) g/dL RDW Coeff of Deepika 12.2 (10.0-15.0) % Plt Count 198 (130-400) x10^3/uL Neut % (Auto) 52.4 (50.0-80.0) % Lymph % (Auto) 34.4 (25.0-50.0) % [place] % (Auto) 11.0 (2.0-11.0) % Eos % (Auto) 1.8 (0.0-4.0) % Baso % (Auto) 0.4 (0.2-1.2) % PT 22.3 H (9.5-12.3) SEC INR 2.1 (2.0-3.5) Sodium 141 (136-145) mmol/L Potassium 3.5 (3.5-5.1) mmol/L Chloride 107 (98-107) mmol/L Carbon Dioxide 26 (21-32) mmol/L Anion Gap 11.5 (10-20) mmol/L BUN 23 H (7-18) mg/dL Creatinine 0.8 (0.55-1.02) mg/dL Est Cr Clr Drug Dosing 57.20 mL/min Estimated GFR (MDRD) > 60 Glucose 132 H (74-106) mg/dL Calcium 9.2 (8.5-10.1) mg/dL Corrected Calcium 9.60 (8.5-10.1) mg/dL Magnesium 2.1 (1.8-2.4) mg/dL Total Bilirubin 0.4 (0.2-1.0) mg/dL AST 21 (15-37) U/L ALT 35 (14-59) U/L Alkaline Phosphatase 84 (46-116) U/L Troponin I < 0.017 (<=0.056) ng/mL Total Protein 6.6 (6.4-8.2) g/dL Albumin 3.5 (3.4-5.0) g/dL Globulin 3.1 Albumin/Globulin Ratio 1.13 TSH, Ultra Sensitive 0.510 (0.358-3.74) uIU/mL Urine Color (YELLOW) Urine Appearance (CLEAR) Urine pH (5.0-8.0) Ur Specific [place] Urine Protein (NEGATIVE) mg/dL Urine Glucose (UA) (NEGATIVE) mg/dL Urine Ketones (NEGATIVE) mg/dL Urine Occult Blood (NEGATIVE) Urine Nitrite (NEGATIVE) Urine Bilirubin (NEGATIVE) Urine Urobilinogen (0.2) EU/dL Ur Leukocyte Esterase (NEGATIVE) Urine RBC (NOT SEEN) /HPF Urine WBC (NOT SEEN) /HPF Ur Squamous Epith Cells (NEGATIVE) /HPF Urine Bacteria (NEGATIVE) /HPF Urine Mucus (NEGATIVE) /LPF 06/25/20 Range/Units 00:10 WBC (4.0-10.0) x10^3/uL RBC (4.00-5.50) x10^6/uL Hgb (12.0-16.0) g/dL Hct (33.0-47.0) % MCV (78.0-93.0) fL MCH (26.0-32.0) pg MCHC (32.0-36.0) g/dL RDW Coeff of Deepika (10.0-15.0) % Plt Count (130-400) x10^3/uL Neut % (Auto) (50.0-80.0) % Lymph % (Auto) (25.0-50.0) % [place] % (Auto) (2.0-11.0) % Eos % (Auto) (0.0-4.0) % Baso % (Auto) (0.2-1.2) % PT (9.5-12.3) SEC INR (2.0-3.5) Sodium (136-145) mmol/L Potassium (3.5-5.1) mmol/L Chloride (98-107) mmol/L Carbon Dioxide (21-32) mmol/L Anion Gap (10-20) mmol/L BUN (7-18) mg/dL Creatinine (0.55-1.02) mg/dL Est Cr Clr Drug Dosing mL/min Estimated GFR (MDRD) Glucose (74-106) mg/dL Calcium (8.5-10.1) mg/dL Corrected Calcium (8.5-10.1) mg/dL Magnesium (1.8-2.4) mg/dL Total Bilirubin (0.2-1.0) mg/dL AST (15-37) U/L ALT (14-59) U/L Alkaline Phosphatase (46-116) U/L Troponin I (<=0.056) ng/mL Total Protein (6.4-8.2) g/dL Albumin (3.4-5.0) g/dL Globulin Albumin/Globulin Ratio TSH, Ultra Sensitive (0.358-3.74) uIU/mL Urine Color Light yellow (YELLOW) Urine Appearance Clear (CLEAR) Urine pH 7.0 (5.0-8.0) Ur Specific [place] 1.015 Urine Protein Negative (NEGATIVE) mg/dL Urine Glucose (UA) Negative (NEGATIVE) mg/dL Urine Ketones Negative (NEGATIVE) mg/dL Urine Occult Blood Small H (NEGATIVE) Urine Nitrite Negative (NEGATIVE) Urine Bilirubin Negative (NEGATIVE) Urine Urobilinogen 0.2 (0.2) EU/dL Ur Leukocyte Esterase Negative (NEGATIVE) Urine RBC 0-5 (NOT SEEN) /HPF Urine WBC 0-5 (NOT SEEN) /HPF Ur Squamous Epith Cells Rare (NEGATIVE) /HPF Urine Bacteria Not seen (NEGATIVE) /HPF Urine Mucus Not seen (NEGATIVE) /LPF Departure - Departure Time of Disposition: 12:54 Disposition: Home, Self-Care 01 Clinical Impression: Atrial fibrillation Qualifiers: Atrial fibrillation type: unspecified Qualified Code(s): I48.91 - Unspecified atrial fibrillation - Discharge Information Instructions: Atrial Fibrillation, [id number] Referrals: PCP,Unobtain [Primary Care Provider] - Forms: ED Department Discharge Additional Instructions: Continue with current medications. Your rate in the the 70-80 range so I don't think adjusting your toprol is necessary at this time. Return to ER if you have an elevated heart rate (120-130 or higher) that is not resolving with rest. Recheck in clinic in 7-10 days. Sepsis Event Note (ED) - Focused Exam Vital Signs: Vital Signs Temp Pulse Resp BP Pulse Ox 06/24/20 23:25 36.8 C 97 20 150/73 H 97 - Problem List Review Problem List Initiated/Reviewed/Updated: Yes - My Orders Last 24 Hours: My Active Orders 06/24/20 23:35 Cardiac Monitoring [RC] CONTINUOUS 06/24/20 23:36 EKG Documentation Completion [RC] STAT - Assessment/Plan Last 24 Hours: My Active Orders 06/24/20 23:35 Cardiac Monitoring [RC] CONTINUOUS 06/24/20 23:36 EKG Documentation Completion [RC] STAT Plan: Pt. was monitored in ER. Heart rate consistently 70-80 in atrial fib. No episodes of tachycardia. She did have a rate of around 100 when she came in. Pt. is anticoagulated and her INR is therapeutic. At this point, we will not adjust her medications as her rate is well controlled. Advised to follow-up with Dr. Rogers within 7-10 days. All questions were answered.
[2020-06-25 00:13] VITALS: PULSE 97
[2020-06-25 00:32] LABS: CHLORIDE,CL 107 mmol/L (98-107); SODIUM,NA 141 mmol/L (136-145)
[2020-06-25 00:34] LABS: ANION GAP 11.5 mmol/L (10-20)
[2020-06-25 03:03] VITALS: BP 121/63
== END 2020-06-25 00:59 | disposition home or self-care (01) ==
LOC: VM.ED 23:25
DX: I48.91 Unspecified atrial fibrillation (principal); E78.00 Pure hypercholesterolemia, unspecified; I10 Essential (primary) hypertension; E66.9 Obesity, unspecified; Z68.33 Body mass index [BMI] 33.0-33.9, adult; Z88.6 Allergy status to analgesic agent; Z88.8 Allergy status to other drugs, medicaments and biological substances; Z79.01 Long term (current) use of anticoagulants; Z79.899 Other long term (current) drug therapy
CPT/HCPCS: 36415; 80053; 81001; 83735; 84443; 84484; 85025; 85610; 93005; 93010; 99284; 99285-25

== ENCOUNTER 2020-07-06 05:17 | Emergency (ER) | payer MEDICARE, OTHER ==
[2020-07-06 05:37] VITALS: BP 154/58; PULSE 63
--- NOTE | 2020-07-06 05:55 | EDM.PDOC ---
ED HPI GENERAL MEDICAL PROBLEM - General Chief Complaint: Chest Pain Time Seen by Provider: 07/06/20 05:35 Source of Information: Reports: Patient History Limitations: Reports: No Limitations - History of Present Illness INITIAL COMMENTS - FREE TEXT/NARRATIVE: Pt. presents to ER with complaints of resolved epigastric pain. Pt. states that she had an episode of sharp discomfort that lasted less than a minute. Pt. states that the pain remained in the epigastric region and did not radiate. Denies any fever or chills. No shortness of breath. No nausea, vomiting, dark colored stools, or hematemesis. Pt. has a history of paroxysmal atrial fib and is currently anticoagulated. She was seen in the ER for this on 06/24. Pt. denies any current discomfort. No jaw, arm, neck or back pain. Denies any lightheadedness. No palpitations. Denies any fatigue. No cough/chest congestion. No fever, chills or recent illness. Onset: Today Onset Date: 07/06/20 Location: Reports: Chest, Abdomen Associated Symptoms: Reports: Chest Pain. Denies: Cough, Diaphoresis, Fever/Chills, Malaise, Nausea/Vomiting, Rash, Seizure, Shortness of Breath, Syncope, Weakness - Related Data Allergies Allergy/AdvReac Type Severity Reaction Status Date / Time ezetimibe [From Zetia] Allergy Other Verified 07/06/20 05:16 ibuprofen Allergy Tachycardia Verified 07/06/20 05:16 atorvastatin [From Lipitor] AdvReac Muscle Verified 07/06/20 05:16 Aches Home Meds: Home Meds ALPRAZolam [Xanax] 0.25 mg PO TID PRN 07/19/16 [History] Calcium Carbonate/Vitamin D3 [Calcium 500-Vit D3 200 Caplet] 1 tab PO DAILY 07/19/16 [History] Cyanocobalamin (Vitamin B-12) [Vitamin B-12] 500 mcg PO DAILY 07/19/16 [History] Pravastatin [Pravachol] 80 mg PO Q48H 07/19/16 [History] SUMAtriptan [Imitrex] 50 mg PO Q2HR PRN MDD 100 mg 07/19/16 [History] Verapamil [Calan SR] 240 mg PO DAILY 07/19/16 [History] Ferrous Gluconate [Iron] 236 mg PO DAILY 11/29/18 [History] Acetaminophen [Acetaminophen Extra Strength] 250 mg PO Q4H PRN 05/31/19 [History] Acetaminophen/Diphenhydramine [Acetaminophen-Diphenhyd 500-25] 2 tab PO BEDTIME PRN 05/31/19 [History] Melatonin 3 mg PO BEDTIME 05/31/19 [History] Triamcinolone Acetonide [Nasacort] 2 spray NASBOTH BID 06/04/19 [History] Warfarin [Coumadin] 5 mg PO ASDIRECTED 06/25/20 [History] Fish Oil/[place]-3 Fatty Acids [Fish Oil 1,000 MG] 1 each PO DAILY 07/06/20 [History] Metoprolol Succinate [Toprol XL] 25 mg PO DAILY 07/06/20 [History] Past Medical History HEENT History: Reports: Sinusitis Other HEENT History: Benign Paroxysmal Vertigo Cardiovascular History: Reports: Afib, High Cholesterol, Hypertension Respiratory History: Reports: Other (See Below) Other Respiratory History: Chronic pharyngitis Gastrointestinal History: Reports: Chronic Constipation, Diverticulosis, GERD, Hiatal Hernia Genitourinary History: Reports: Other (See Below) Other Genitourinary History: overactive bladder. 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 Disorder of bone and cartilage Neurological History: Reports: Migraines, Vertigo Other Neuro History: Migraines with aura and without status migrainosus, not intractable. Primary Insomnia Psychiatric History: Reports: Anxiety Other Psychiatric History: Moderate episode of recurrent major depressive disorder (HCC) Endocrine/Metabolic History: Reports: Obesity/BMI 30+ Other Endocrine/Metabolic History: "I have hypoglycemia" Hematologic History: Reports: Other (See Below) Other Hematologic History: Positive TOM (antinuclear antibody) Oncologic (Cancer) History: Reports: Breast Other Oncologic History: left - Infectious Disease History Infectious Disease History: Reports: Chicken Pox, Mumps - Past Surgical History HEENT Surgical History: Reports: Tonsillectomy GI Surgical History: Reports: Appendectomy, Hernia Repair/Other Female Surgical History: Reports: Hysterectomy Musculoskeletal Surgical History: Reports: Arthroscopic Knee, Knee Replacement Oncologic Surgical History: Reports: Lumpectomy, Mastectomy Social & Family History - Family History Family Medical History: No Pertinent Family History Cardiac: Reports: CAD, [place] Endocrine/Metabolic: Reports: Diabetes, type II Immunologic: Reports: None - Tobacco Use Tobacco Use Status *Q: Never Tobacco User - Caffeine Use Caffeine Use: Reports: None ED ROS GENERAL - Review of Systems Review Of Systems: See Below Constitutional: Reports: No Symptoms HEENT: Reports: No Symptoms Respiratory: Reports: No Symptoms Cardiovascular: Reports: Chest Pain Endocrine: Reports: No Symptoms GI/Abdominal: Reports: Abdominal Pain : Reports: No Symptoms Musculoskeletal: Reports: No Symptoms Skin: Reports: No Symptoms Neurological: Reports: No Symptoms Psychiatric: Reports: No Symptoms Hematologic/Lymphatic: Reports: No Symptoms Immunologic: Reports: No Symptoms ED EXAM, GENERAL - Physical Exam Exam: See Below Exam Limited By: No Limitations General Appearance: Alert, WD/WN, No Apparent Distress Nose: Normal Inspection, Normal Mucosa, No Blood Throat/Mouth: Normal Inspection, Normal Lips, Normal Teeth, Normal Oropharynx, Normal Voice, No Airway Compromise Head: Atraumatic, Normocephalic Neck: Normal Inspection, Supple, Non-Tender, Full Range of Motion Respiratory/Chest: No Respiratory Distress, Lungs Clear, No Accessory Muscle Use, Chest Non-Tender Cardiovascular: Normal Peripheral Pulses, Regular Rate, Rhythm, No Edema, No JVD, No Murmur Peripheral Pulses: 4+: Radial (L) GI/Abdominal: Soft, Non-Tender, No Organomegaly, No Distention, No Mass (Female) Exam: Deferred Rectal (Female) Exam: Deferred Back Exam: Normal Inspection, Full Range of Motion Extremities: Normal Inspection, Normal Range of Motion, Non-Tender, No Pedal Edema, Normal Capillary Refill Neurological: Alert, Oriented, CN II-XII Intact, Normal Cognition, Normal Gait, Normal Reflexes, No Motor/Sensory Deficits Psychiatric: Normal Affect, Normal Mood Skin Exam: Warm, Dry, Intact, Normal Color, No Rash Lymphatic: No Adenopathy Course - Vital Signs Last Recorded V/S: Last Vital Signs Temp 36.3 C 07/06/20 05:20 Pulse 63 07/06/20 05:20 Resp 16 07/06/20 05:20 BP 154/58 H 07/06/20 05:20 Pulse Ox 97 07/06/20 05:20 - Orders/Labs/Meds Labs: Laboratory Tests 07/06/20 07/06/20 07/06/20 Range/Units 05:54 05:54 05:54 WBC 3.7 L (4.0-10.0) x10^3/uL RBC 4.32 (4.00-5.50) x10^6/uL Hgb 14.1 (12.0-16.0) g/dL Hct 41.3 (33.0-47.0) % MCV 95.6 H (78.0-93.0) fL MCH 32.6 H (26.0-32.0) pg MCHC 34.1 (32.0-36.0) g/dL RDW Coeff of Deepika 12.5 (10.0-15.0) % Plt Count 178 (130-400) x10^3/uL Neut % (Auto) 51.2 (50.0-80.0) % Lymph % (Auto) 33.4 (25.0-50.0) % [place] % (Auto) 12.2 H (2.0-11.0) % Eos % (Auto) 2.7 (0.0-4.0) % Baso % (Auto) 0.5 (0.2-1.2) % PT 31.0 H D (9.5-12.3) SEC INR 3.0 (2.0-3.5) Sodium 141 (136-145) mmol/L Potassium 3.8 (3.5-5.1) mmol/L Chloride 106 (98-107) mmol/L Carbon Dioxide 27 (21-32) mmol/L Anion Gap 11.8 (10-20) mmol/L BUN 22 H (7-18) mg/dL Creatinine 0.8 (0.55-1.02) mg/dL Est Cr Clr Drug Dosing 57.20 mL/min Estimated GFR (MDRD) > 60 Glucose 97 (74-106) mg/dL Calcium 9.1 (8.5-10.1) mg/dL Corrected Calcium 9.66 (8.5-10.1) mg/dL Total Bilirubin 0.6 (0.2-1.0) mg/dL AST 20 (15-37) U/L ALT 32 (14-59) U/L Alkaline Phosphatase 67 (46-116) U/L Troponin I < 0.017 (<=0.056) ng/mL C-Reactive Protein 0.3 (<=0.9) mg/dL Total Protein 6.2 L (6.4-8.2) g/dL Albumin 3.3 L (3.4-5.0) g/dL Globulin 2.9 Albumin/Globulin Ratio 1.14 Departure - Departure Time of Disposition: 07:00 Disposition: Home, Self-Care 01 Clinical Impression: Atypical chest pain - Discharge Information Instructions: Nonspecific Chest Pain, Adult, [id number] Referrals: PCP,None [Ordering Only Provider] - Forms: ED Department Discharge Additional Instructions: Home to rest. Follow-up in clinic as needed. Return to ER if you have recurrent discomfort that does not resolve. Sepsis Event Note (ED) - Evaluation Sepsis Screening Result: No Definite Risk - Assessment/Plan Plan: Home to rest. Follow-up in clinic as needed. Return to ER if you have recurrent discomfort that does not resolve.
[2020-07-06 06:24] LABS: CHLORIDE,CL 106 mmol/L (98-107); SODIUM,NA 141 mmol/L (136-145)
[2020-07-06 06:26] LABS: ANION GAP 11.8 mmol/L (10-20)
== END 2020-07-06 06:36 | disposition home or self-care (01) ==
LOC: VM.ED 05:17
DX: R07.89 Other chest pain (principal); I48.91 Unspecified atrial fibrillation; E78.00 Pure hypercholesterolemia, unspecified; I10 Essential (primary) hypertension; E66.9 Obesity, unspecified; Z68.33 Body mass index [BMI] 33.0-33.9, adult; Z88.6 Allergy status to analgesic agent; Z88.8 Allergy status to other drugs, medicaments and biological substances; Z79.899 Other long term (current) drug therapy
CPT/HCPCS: 36415; 80053; 84484; 85025; 85610; 86140; 93005; 99284; 99285-25

== ENCOUNTER 2021-06-23 21:00 | Emergency (ER) | payer MEDICARE, OTHER ==
[2021-06-23 21:20] VITALS: BP 185/89; PULSE 91
--- NOTE | 2021-06-23 21:42 | EDM.PDOC ---
ED HPI GENERAL MEDICAL PROBLEM - General Chief Complaint: General Stated Complaint: BAD COLD Time Seen by Provider: 06/23/21 21:20 Source of Information: Reports: Patient, Family History Limitations: Reports: No Limitations - History of Present Illness INITIAL COMMENTS - FREE TEXT/NARRATIVE: Ongoing sneezing runny nose for the last 2 weeks with a new onset of yellowish phlegm productive cough for the last 3 days. Patient states she has not been taking any [id number] medications secondary to her A. fib and not knowing if she should or could take any other medications. She will come to the ER to get checked out. She has no other complaints. She states she has been eating and drinking fine with no fever chills nausea vomiting shortness of breath [place] orthopnea lower extremity edema states she feels fine overall. She does have a history of A. fib and is currently on Coumadin has no issues taking the medication Duration: Day(s): Associated Symptoms: Reports: Cough, cough w sputum. Denies: Confusion, Diaphoresis, Fever/Chills, Headaches, Loss of Appetite, Malaise, Nausea/Vomiting, Rash, Shortness of Breath, Syncope, Weakness - Related Data Allergies Allergy/AdvReac Type Severity Reaction Status Date / Time ezetimibe [From Zetia] Allergy Other Verified 07/06/20 05:16 ibuprofen Allergy Tachycardia Verified 07/06/20 05:16 atorvastatin [From Lipitor] AdvReac Muscle Verified 07/06/20 05:16 Aches Home Meds: Home Meds ALPRAZolam [Xanax] 0.25 mg PO TID PRN 07/19/16 [History] Calcium Carbonate/Vitamin D3 [Calcium 500-Vit D3 200 Caplet] 1 tab PO DAILY 07/19/16 [History] Cyanocobalamin (Vitamin B-12) [Vitamin B-12] 500 mcg PO DAILY 07/19/16 [History] Pravastatin [Pravachol] 80 mg PO Q48H 07/19/16 [History] SUMAtriptan [Imitrex] 50 mg PO Q2HR PRN MDD 100 mg 07/19/16 [History] Verapamil [Calan SR] 240 mg PO DAILY 07/19/16 [History] Ferrous Gluconate [Iron] 236 mg PO DAILY 11/29/18 [History] Acetaminophen [Acetaminophen Extra Strength] 250 mg PO Q4H PRN 05/31/19 [History] Acetaminophen/Diphenhydramine [Acetaminophen-Diphenhyd 500-25] 2 tab PO BEDTIME PRN 05/31/19 [History] Melatonin 3 mg PO BEDTIME 05/31/19 [History] Triamcinolone Acetonide [Nasacort] 2 spray NASBOTH BID 06/04/19 [History] Warfarin [Coumadin] 5 mg PO ASDIRECTED 06/25/20 [History] Fish Oil/[place]-3 Fatty Acids [Fish Oil 1,000 MG] 1 each PO DAILY 07/06/20 [History] Metoprolol Succinate [Toprol XL] 25 mg PO DAILY 07/06/20 [History] Past Medical History HEENT History: Reports: Sinusitis Other HEENT History: Benign Paroxysmal Vertigo Cardiovascular History: Reports: Afib, High Cholesterol, Hypertension Respiratory History: Reports: Other (See Below) Other Respiratory History: Chronic pharyngitis Gastrointestinal History: Reports: Chronic Constipation, Diverticulosis, GERD, Hiatal Hernia Genitourinary History: Reports: Other (See Below) Other Genitourinary History: overactive bladder. 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 Disorder of bone and cartilage Neurological History: Reports: Migraines, Vertigo Other Neuro History: Migraines with aura and without status migrainosus, not intractable. Primary Insomnia Psychiatric History: Reports: Anxiety Other Psychiatric History: Moderate episode of recurrent major depressive disorder (HCC) Endocrine/Metabolic History: Reports: Obesity/BMI 30+ Other Endocrine/Metabolic History: "I have hypoglycemia" Hematologic History: Reports: Other (See Below) Other Hematologic History: Positive TOM (antinuclear antibody) Oncologic (Cancer) History: Reports: Breast Other Oncologic History: left - Infectious Disease History Infectious Disease History: Reports: Chicken Pox, Mumps - Past Surgical History HEENT Surgical History: Reports: Tonsillectomy GI Surgical History: Reports: Appendectomy, Hernia Repair/Other Female Surgical History: Reports: Hysterectomy Musculoskeletal Surgical History: Reports: Arthroscopic Knee, Knee Replacement Oncologic Surgical History: Reports: Lumpectomy, Mastectomy Social & Family History - Family History Family Medical History: No Pertinent Family History Cardiac: Reports: CAD, [place] Endocrine/Metabolic: Reports: Diabetes, type II Immunologic: Reports: None - Tobacco Use Tobacco Use Status *Q: Never Tobacco User - Caffeine Use Caffeine Use: Reports: None ED ROS GENERAL - Review of Systems Review Of Systems: See Below Constitutional: Reports: No Symptoms HEENT: Reports: No Symptoms Respiratory: Reports: No Symptoms, Cough, Sputum. Denies: Shortness of Breath, Wheezing, Pleuritic Chest Pain Cardiovascular: Reports: No Symptoms Endocrine: Reports: No Symptoms GI/Abdominal: Reports: No Symptoms : Reports: No Symptoms Musculoskeletal: Reports: No Symptoms Skin: Reports: No Symptoms Neurological: Reports: No Symptoms Psychiatric: Reports: No Symptoms Hematologic/Lymphatic: Reports: No Symptoms Immunologic: Reports: No Symptoms ED EXAM, GENERAL - Physical Exam Exam: See Below Exam Limited By: No Limitations General Appearance: Alert, WD/WN, No Apparent Distress Eye Exam: Bilateral Eye: Normal Inspection, PERRL Ears: Normal External Exam, Normal Canal, Hearing Grossly Normal, Normal TMs Nose: Normal Inspection, Normal Mucosa, No Blood Throat/Mouth: Normal Inspection, Normal Lips, Normal Teeth, Normal Gums, Normal Oropharynx, Normal Voice, No Airway Compromise Head: Atraumatic, Normocephalic Neck: Normal Inspection, Supple, Non-Tender, Full Range of Motion Respiratory/Chest: No Respiratory Distress, Lungs Clear, Normal Breath Sounds, No Accessory Muscle Use, Chest Non-Tender. No: Decreased Breath Sounds, Crackles, Rales, Rhonchi, Wheezing Cardiovascular: Normal Peripheral Pulses, Regular Rate, Rhythm, No Edema, No Gallop, No JVD, No Murmur, No Rub. No: Irregularly Irregular GI/Abdominal: Normal Bowel Sounds, Soft, Non-Tender, No Organomegaly, No Distention Back Exam: Normal Inspection, Full Range of Motion Extremities: Normal Inspection, Normal Range of Motion, Non-Tender, No Pedal Edema, Normal Capillary Refill Neurological: Alert, Oriented, CN II-XII Intact, Normal Cognition, Normal Gait, No Motor/Sensory Deficits Psychiatric: Normal Affect, Normal Mood Skin Exam: Warm, Dry, Intact, Normal Color, No Rash Lymphatic: No Adenopathy Course - Vital Signs Text/Narrative:: Patient is okay with disposition home tried [id number] Mucinex Coricidin normal saline nasal spray and Flonase And follow-up with primary care provider next couple days if anything gets worse Patient states she does take hypertensive medications in the morning but does not take anything at night she states she will keep a check on it follow-up with her primary care provider she has no signs or symptoms of any endorgan damage Last Recorded V/S: Last Vital Signs Temp 37.4 C 06/23/21 21:16 Pulse 91 06/23/21 21:16 Resp 19 06/23/21 21:16 BP 185/89 H 06/23/21 21:16 Pulse Ox 95 06/23/21 21:16 Departure - Departure Time of Disposition: 21:40 Disposition: Home, Self-Care 01 Condition: Good Clinical Impression: Acute cough, Rhinitis - Discharge Information *PRESCRIPTION DRUG MONITORING PROGRAM REVIEWED*: No *COPY OF PRESCRIPTION DRUG MONITORING REPORT IN PATIENT TEENA: No Sepsis Event Note (ED) - Evaluation Sepsis Screening Result: No Definite Risk - Focused Exam Vital Signs: Vital Signs Temp Pulse Resp BP Pulse Ox 06/23/21 21:16 37.4 C 91 19 185/89 H 95 - Problem List & Annotations (1) Acute cough SNOMED Code(s): 28337008, 55508358 Code(s): R05.1 - ACUTE COUGH Status: Acute (2) Rhinitis SNOMED Code(s): 76759762 Code(s): J31.0 - CHRONIC RHINITIS Status: Acute
== END 2021-06-23 21:50 | disposition home or self-care (01) ==
LOC: VM.ED 21:00
DX: J31.0 Chronic rhinitis (principal); I48.91 Unspecified atrial fibrillation; E78.00 Pure hypercholesterolemia, unspecified; I10 Essential (primary) hypertension; E66.9 Obesity, unspecified; Z68.34 Body mass index [BMI] 34.0-34.9, adult; Z88.8 Allergy status to other drugs, medicaments and biological substances; Z88.6 Allergy status to analgesic agent; Z79.899 Other long term (current) drug therapy
CPT/HCPCS: 99283

== ENCOUNTER 2021-07-01 00:40 | Emergency (ER) | payer MEDICARE, OTHER ==
[2021-07-01] MEDS ORDERED: Sodium Chloride 0.9% 10 ML Syringe FLUSH PRN (00:52)
[2021-07-01] MEDS ORDERED: Sodium Chloride 0.9% 1,000 ML IV ONE (00:54)
[2021-07-01] MEDS ORDERED: Metoprolol Tartrate 5 MG/5 ML SDV IVPUSH ONE (01:03)
--- NOTE | 2021-07-01 01:18 | EDM.PDOC ---
ED HPI GENERAL MEDICAL PROBLEM - General Chief Complaint: Cardiovascular Problem Stated Complaint: Irregular heart rate-Afib, cough Time Seen by Provider: 07/01/21 00:55 Source of Information: Reports: Patient, Old Records History Limitations: Reports: No Limitations - History of Present Illness INITIAL COMMENTS - FREE TEXT/NARRATIVE: Patient presents to the Ed for about three hours of palpitations and fast heart rate thinking that she is in Atrial fibrillation. She has a history of atrial fibrillation and takes verapamil and metoprolol along with warfarin for this. Has been taking her medications, no missed or skipped doses. She has been admitted for a fib before with chemical or medical treatment but not cardioversion. Last check of the warfarin was 3 weeks ago without adjustment of the dose. She has been ill since about the with cough that is worsening. NO fevers or body aches, no loss of taste or smell. She was seen on 06/23 for this after it started and no imaging or laboratory testing was done. She was told to take over the counter cold medications which she has been. Has been eating and drinking, no diarrhea, no rashes. Tonight after this started, she was able to fall asleep but coughing awoke her again. not able to lay flat for sleep for the last few weeks. She is not vaccinated against covid 19 or influneza, and her has become ill with a similiar illness to hers. - Related Data Allergies Allergy/AdvReac Type Severity Reaction Status Date / Time ezetimibe [From Zetia] Allergy Other Verified 07/06/20 05:16 ibuprofen Allergy Tachycardia Verified 07/06/20 05:16 atorvastatin [From Lipitor] AdvReac Muscle Verified 07/06/20 05:16 Aches Home Meds: Home Meds ALPRAZolam [Xanax] 0.25 mg PO TID PRN 07/19/16 [History] Calcium Carbonate/Vitamin D3 [Calcium 500-Vit D3 200 Caplet] 1 tab PO DAILY 07/19/16 [History] Cyanocobalamin (Vitamin B-12) [Vitamin B-12] 500 mcg PO DAILY 07/19/16 [History] Pravastatin [Pravachol] 80 mg PO Q48H 07/19/16 [History] SUMAtriptan [Imitrex] 50 mg PO Q2HR PRN MDD 100 mg 07/19/16 [History] Verapamil [Calan SR] 240 mg PO DAILY 07/19/16 [History] Ferrous Gluconate [Iron] 236 mg PO DAILY 11/29/18 [History] Acetaminophen [Acetaminophen Extra Strength] 250 mg PO Q4H PRN 05/31/19 [History] Acetaminophen/Diphenhydramine [Acetaminophen-Diphenhyd 500-25] 2 tab PO BEDTIME PRN 05/31/19 [History] Melatonin 3 mg PO BEDTIME 05/31/19 [History] Triamcinolone Acetonide [Nasacort] 2 spray NASBOTH BID 06/04/19 [History] Warfarin [Coumadin] 5 mg PO ASDIRECTED 06/25/20 [History] Fish Oil/Webb-3 Fatty Acids [Fish Oil 1,000 MG] 1 each PO DAILY 07/06/20 [History] Metoprolol Succinate [Toprol XL] 25 mg PO DAILY 07/06/20 [History] Benzonatate [Tessalon Perles] 100 mg PO TID PRN #40 cap 07/01/21 [Rx] Budesonide 1 mg IH BID #30 ampul.neb 07/01/21 [Rx] levalbuterol HCL [Xopenex] 0.63 mg IH Q4H PRN #60 ml 07/01/21 [Rx] Past Medical History HEENT History: Reports: Sinusitis Other HEENT History: Benign Paroxysmal Vertigo Cardiovascular History: Reports: Afib, High Cholesterol, Hypertension Respiratory History: Reports: Other (See Below) Other Respiratory History: Chronic pharyngitis Gastrointestinal History: Reports: Chronic Constipation, Diverticulosis, GERD, Hiatal Hernia Genitourinary History: Reports: Other (See Below) Other Genitourinary History: overactive bladder. incontinence Other RO[employer] History: hysterctomy Musculoskeletal History: Reports: Arthritis, Osteoarthritis Other Musculoskeletal History: Primary osteoarthritis of right knee. Disorder of bone and cartilage Neurological History: Reports: Migraines, Vertigo Other Neuro History: Migraines with aura and without status migrainosus, not intractable. Primary Insomnia Psychiatric History: Reports: Anxiety Other Psychiatric History: Moderate episode of recurrent major depressive disorder (HCC) Endocrine/Metabolic History: Reports: Obesity/BMI 30+ Other Endocrine/Metabolic History: "I have hypoglycemia" Hematologic History: Reports: Other (See Below) Other Hematologic History: Positive TOM (antinuclear antibody) Oncologic (Cancer) History: Reports: Breast Other Oncologic History: left - Infectious Disease History Infectious Disease History: Reports: Chicken Pox, Mumps - Past Surgical History HEENT Surgical History: Reports: Tonsillectomy GI Surgical History: Reports: Appendectomy, Hernia Repair/Other Female Surgical History: Reports: Hysterectomy Musculoskeletal Surgical History: Reports: Arthroscopic Knee, Knee Replacement Oncologic Surgical History: Reports: Lumpectomy, Mastectomy Social & Family History - Family History Family Medical History: No Pertinent Family History Cardiac: Reports: CAD, [place] Endocrine/Metabolic: Reports: Diabetes, type II Immunologic: Reports: None - Caffeine Use Caffeine Use: Reports: None - Alcohol Use Alcohol Use History: No Alcohol Use in Last Twelve Months: No - Recreational Drug Use Recreational Drug Use: No Drug Use in Last 12 Months: No - Living Situation & Occupation Living situation: Reports: with Spouse ED ROS GENERAL - Review of Systems Review Of Systems: See Below Constitutional: Reports: No Symptoms. Denies: Fever, Chills HEENT: Reports: Rhinitis. Denies: Ear Pain, Throat Pain, Throat Swelling Respiratory: Reports: Cough, Sputum (at times, minimal ). Denies: Shortness of Breath, Wheezing, Pleuritic Chest Pain, Hemoptysis Cardiovascular: Reports: Dyspnea on Exertion, Palpitations. Denies: Chest Pain, Claudication Endocrine: Reports: No Symptoms GI/Abdominal: Reports: No Symptoms. Denies: Abdominal Pain, Anorexia, Black Stool, Diarrhea, Decreased Appetite, Nausea, Vomiting : Reports: No Symptoms Musculoskeletal: Reports: No Symptoms Skin: Reports: No Symptoms Neurological: Reports: No Symptoms. Denies: Confusion, Dizziness, Headache Psychiatric: Reports: No Symptoms Hematologic/Lymphatic: Reports: Easy Bleeding, Easy Bruising ED EXAM, GENERAL - Physical Exam Exam: See Below Exam Limited By: No Limitations General Appearance: Alert, WD/WN, No Apparent Distress, Other (recurrent dry cough easily induced and repetitive) Eye Exam: Bilateral Eye: EOMI, Normal Inspection, PERRL Ears: Normal External Exam, Normal Canal, Hearing Grossly Normal, Normal TMs Nose: Normal Inspection Throat/Mouth: Normal Inspection, Normal Teeth, Normal Gums, Normal Voice Head: Atraumatic Neck: Normal Inspection Respiratory/Chest: Decreased Breath Sounds (bases), Crackles (fine in the bases), Other (increased work of breathing). No: Respiratory Distress, Retractions, Prolonged Expiration Cardiovascular: Tachycardia, Irregularly Irregular GI/Abdominal: Normal Bowel Sounds, Soft, No Distention Extremities: Normal Inspection, Normal Range of Motion, Non-Tender, No Pedal Edema Neurological: Alert, Oriented, CN II-XII Intact, Normal Cognition #1 Interpretation EKG Date: 07/01/21 Time: 00:42 Rhythm: A-Fib Rate (Beats/Min): 115 P-Wave: Absent ST-T: Other (slight elevation in V1-3 probable rate related, LVH) QT: Normal Comparison: No Change (similiar st changes previous with LVH) Course - Vital Signs Last Recorded V/S: Last Vital Signs Temp 36.6 C 07/01/21 00:45 Pulse 122 H 07/01/21 02:19 Resp 14 07/01/21 01:57 BP 121/74 07/01/21 02:19 Pulse Ox 91 L 07/01/21 01:57 - Orders/Labs/Meds Orders: Active Orders 24 hr Category Date Time Status Cardiac Monitoring [RC] . DIRECTED Care 07/01/21 00:52 Active Chest 2V [CR] Stat Exams 07/01/21 01:43 Ordered Sodium Chloride 0.9% [Saline Flush] Med 07/01/21 00:52 Active 10 ml FLUSH ASDIRECTED PRN Isolation [COMM] Routine Oth 07/01/21 00:53 Ordered Peripheral IV Insertion Adult [OM.PC] Routine Oth 07/01/21 00:52 Ordered Medication Orders Sodium Chloride (Sodium Chloride 0.9% 10 Ml Syringe) 10 ml FLUSH ASDIRECTED PRN PRN Reason: Keep Vein Open Labs: Laboratory Tests 07/01/21 07/01/21 07/01/21 Range/Units 00:55 00:55 00:55 WBC 7.2 (4.0-10.0) x10^3/uL RBC 4.69 (4.00-5.50) x10^6/uL Hgb 15.2 (12.0-16.0) g/dL Hct 43.6 (33.0-47.0) % MCV 93.0 (78.0-93.0) fL MCH 32.4 H (26.0-32.0) pg MCHC 34.9 (32.0-36.0) g/dL RDW Coeff of Deepika 12.1 (10.0-15.0) % Plt Count 264 (130-400) x10^3/uL Immature Gran % (Auto) 0.10 (0.00-0.43) % Neut % (Auto) 56.1 (50.0-80.0) % Lymph % (Auto) 31.2 (25.0-50.0) % [place] % (Auto) 10.4 (2.0-11.0) % Eos % (Auto) 1.5 (0.0-4.0) % Baso % (Auto) 0.7 (0.2-1.2) % Neut # (Auto) 4.1 (1.8-7.7) x10^3/uL Lymph # (Auto) 2.3 (1.0-4.8) x10^3/uL [place] # (Auto) 0.8 (0.0-0.8) x10^3/uL Eos # (Auto) 0.1 (0.0-0.5) x10^3/uL Baso # (Auto) 0.1 (0.0-0.2) x10^3/uL Immature Gran # (Auto) 0.01 (0.00-0.07) x10^3/uL PT 21.7 H (9.9-12.5) SEC INR 2.0 (2.0-3.5) D-Dimer, Quantitative 0.74 H (<=0.58) mg/LFEU Sodium 142 (136-145) mmol/L Potassium 3.9 (3.5-5.1) mmol/L Chloride 104 (98-107) mmol/L Carbon Dioxide 24 (21-32) mmol/L Anion Gap 17.9 H (5-15) mmol/L BUN 20 H (7-18) mg/dL Creatinine 0.9 (0.55-1.02) mg/dL Est Cr Clr Drug Dosing 50.09 mL/min Estimated GFR (MDRD) > 60 Glucose 135 H (70-99) mg/dL Lactic Acid (0.4-2.0) mmol/L Calcium 9.8 (8.5-10.1) mg/dL Corrected Calcium 10.3 H (8.5-10.1) mg/dL Total Bilirubin 0.5 (0.2-1.0) mg/dL AST 35 (15-37) U/L ALT 51 (14-59) U/L Alkaline Phosphatase 102 (46-116) U/L Troponin I High Sens 19 (<=51) ng/L C-Reactive Protein 6.5 H (<=0.9) mg/dL NT-Pro-B Natriuret Pep 187 H (<=125) pg/mL Total Protein 7.6 (6.4-8.2) g/dL Albumin 3.4 (3.4-5.0) g/dL Globulin 4.2 Albumin/Globulin Ratio 0.81 TSH, Ultra Sensitive (0.358-3.74) uIU/mL Urine Color (YELLOW) Urine Appearance (CLEAR) Urine pH (5.0-8.0) Ur Specific [place] Urine Protein (NEGATIVE) mg/dL Urine Glucose (UA) (NEGATIVE) mg/dL Urine Ketones (NEGATIVE) mg/dL Urine Occult Blood (NEGATIVE) Urine Nitrite (NEGATIVE) Urine Bilirubin (NEGATIVE) Urine Urobilinogen (0.2) EU/dL Ur Leukocyte Esterase (NEGATIVE) Urine RBC (NOT SEEN) /HPF Urine WBC (NOT SEEN) /HPF Ur Squamous Epith Cells (NOT SEEN) /HPF Urine Bacteria (NOT SEEN) /HPF Urine Mucus (NOT SEEN) /LPF Influenza Type A RNA (NEGATIVE) RSV RNA (INAAT) (NEGATIVE) Influenza Type B RNA (NEGATIVE) SARS-CoV-2 RNA (BRAD) (NEGATIVE) 07/01/21 07/01/21 07/01/21 Range/Units 00:55 00:55 01:05 WBC (4.0-10.0) x10^3/uL RBC (4.00-5.50) x10^6/uL Hgb (12.0-16.0) g/dL Hct (33.0-47.0) % MCV (78.0-93.0) fL MCH (26.0-32.0) pg MCHC (32.0-36.0) g/dL RDW Coeff of Deepika (10.0-15.0) % Plt Count (130-400) x10^3/uL Immature Gran % (Auto) (0.00-0.43) % Neut % (Auto) (50.0-80.0) % Lymph % (Auto) (25.0-50.0) % [place] % (Auto) (2.0-11.0) % Eos % (Auto) (0.0-4.0) % Baso % (Auto) (0.2-1.2) % Neut # (Auto) (1.8-7.7) x10^3/uL Lymph # (Auto) (1.0-4.8) x10^3/uL [place] # (Auto) (0.0-0.8) x10^3/uL Eos # (Auto) (0.0-0.5) x10^3/uL Baso # (Auto) (0.0-0.2) x10^3/uL Immature Gran # (Auto) (0.00-0.07) x10^3/uL PT (9.9-12.5) SEC INR (2.0-3.5) D-Dimer, Quantitative (<=0.58) mg/LFEU Sodium (136-145) mmol/L Potassium (3.5-5.1) mmol/L Chloride (98-107) mmol/L Carbon Dioxide (21-32) mmol/L Anion Gap (5-15) mmol/L BUN (7-18) mg/dL Creatinine (0.55-1.02) mg/dL Est Cr Clr Drug Dosing mL/min Estimated GFR (MDRD) Glucose (70-99) mg/dL Lactic Acid 1.2 (0.4-2.0) mmol/L Calcium (8.5-10.1) mg/dL Corrected Calcium (8.5-10.1) mg/dL Total Bilirubin (0.2-1.0) mg/dL AST (15-37) U/L ALT (14-59) U/L Alkaline Phosphatase (46-116) U/L Troponin I High Sens (<=51) ng/L C-Reactive Protein (<=0.9) mg/dL NT-Pro-B Natriuret Pep (<=125) pg/mL Total Protein (6.4-8.2) g/dL Albumin (3.4-5.0) g/dL Globulin Albumin/Globulin Ratio TSH, Ultra Sensitive 0.530 (0.358-3.74) uIU/mL Urine Color (YELLOW) Urine Appearance (CLEAR) Urine pH (5.0-8.0) Ur Specific [place] Urine Protein (NEGATIVE) mg/dL Urine Glucose (UA) (NEGATIVE) mg/dL Urine Ketones (NEGATIVE) mg/dL Urine Occult Blood (NEGATIVE) Urine Nitrite (NEGATIVE) Urine Bilirubin (NEGATIVE) Urine Urobilinogen (0.2) EU/dL Ur Leukocyte Esterase (NEGATIVE) Urine RBC (NOT SEEN) /HPF Urine WBC (NOT SEEN) /HPF Ur Squamous Epith Cells (NOT SEEN) /HPF Urine Bacteria (NOT SEEN) /HPF Urine Mucus (NOT SEEN) /LPF Influenza Type A RNA Negative (NEGATIVE) RSV RNA (INAAT) Positive H (NEGATIVE) Influenza Type B RNA Negative (NEGATIVE) SARS-CoV-2 RNA (BRAD) Negative (NEGATIVE) 07/01/21 Range/Units 01:45 WBC (4.0-10.0) x10^3/uL RBC (4.00-5.50) x10^6/uL Hgb (12.0-16.0) g/dL Hct (33.0-47.0) % MCV (78.0-93.0) fL MCH (26.0-32.0) pg MCHC (32.0-36.0) g/dL RDW Coeff of Deepika (10.0-15.0) % Plt Count (130-400) x10^3/uL Immature Gran % (Auto) (0.00-0.43) % Neut % (Auto) (50.0-80.0) % Lymph % (Auto) (25.0-50.0) % [place] % (Auto) (2.0-11.0) % Eos % (Auto) (0.0-4.0) % Baso % (Auto) (0.2-1.2) % Neut # (Auto) (1.8-7.7) x10^3/uL Lymph # (Auto) (1.0-4.8) x10^3/uL [place] # (Auto) (0.0-0.8) x10^3/uL Eos # (Auto) (0.0-0.5) x10^3/uL Baso # (Auto) (0.0-0.2) x10^3/uL Immature Gran # (Auto) (0.00-0.07) x10^3/uL PT (9.9-12.5) SEC INR (2.0-3.5) D-Dimer, Quantitative (<=0.58) mg/LFEU Sodium (136-145) mmol/L Potassium (3.5-5.1) mmol/L Chloride (98-107) mmol/L Carbon Dioxide (21-32) mmol/L Anion Gap (5-15) mmol/L BUN (7-18) mg/dL Creatinine (0.55-1.02) mg/dL Est Cr Clr Drug Dosing mL/min Estimated GFR (MDRD) Glucose (70-99) mg/dL Lactic Acid (0.4-2.0) mmol/L Calcium (8.5-10.1) mg/dL Corrected Calcium (8.5-10.1) mg/dL Total Bilirubin (0.2-1.0) mg/dL AST (15-37) U/L ALT (14-59) U/L Alkaline Phosphatase (46-116) U/L Troponin I High Sens (<=51) ng/L C-Reactive Protein (<=0.9) mg/dL NT-Pro-B Natriuret Pep (<=125) pg/mL Total Protein (6.4-8.2) g/dL Albumin (3.4-5.0) g/dL Globulin Albumin/Globulin Ratio TSH, Ultra Sensitive (0.358-3.74) uIU/mL Urine Color Yellow (YELLOW) Urine Appearance Clear (CLEAR) Urine pH 7.0 (5.0-8.0) Ur Specific [place] 1.010 Urine Protein Negative (NEGATIVE) mg/dL Urine Glucose (UA) Negative (NEGATIVE) mg/dL Urine Ketones Negative (NEGATIVE) mg/dL Urine Occult Blood Moderate H (NEGATIVE) Urine Nitrite Negative (NEGATIVE) Urine Bilirubin Negative (NEGATIVE) Urine Urobilinogen 0.2 (0.2) EU/dL Ur Leukocyte Esterase Negative (NEGATIVE) Urine RBC 5-10 H (NOT SEEN) /HPF Urine WBC 0-5 (NOT SEEN) /HPF Ur Squamous Epith Cells Occasional H (NOT SEEN) /HPF Urine Bacteria Rare (NOT SEEN) /HPF Urine Mucus Rare H (NOT SEEN) /LPF Influenza Type A RNA (NEGATIVE) RSV RNA (INAAT) (NEGATIVE) Influenza Type B RNA (NEGATIVE) SARS-CoV-2 RNA (BRAD) (NEGATIVE) Meds: Medications Generic Name Dose Route Start Last Admin Trade Name Freq PRN Reason Stop Dose Admin Sodium Chloride 10 ml 07/01/21 00:52 Sodium Chloride 0.9% 10 Ml Syringe FLUSH ASDIRECTED PRN Keep Vein Open Discontinued Medications Generic Name Dose Route Start Last Admin Trade Name Freq PRN Reason Stop Dose Admin Sodium Chloride 1,000 mls @ 999 mls/hr 07/01/21 00:54 07/01/21 01:16 Normal Saline IV 07/01/21 01:54 999 mls/hr ONETIME ONE Administration Methylprednisolone Sodium Succinate 125 mg 07/01/21 02:23 07/01/21 02:29 Methylprednisolone Sodium Succinate 125 Mg/2 Ml Sdv IVPUSH 07/01/21 02:24 125 mg ONETIME ONE Administration Metoprolol Succinate 12.5 mg 07/01/21 02:08 07/01/21 02:19 Metoprolol Succinate 25 Mg Tab.Er PO 07/01/21 02:09 12.5 mg ONETIME ONE Administration Metoprolol Tartrate 2.5 mg 07/01/21 01:03 07/01/21 01:17 Metoprolol Tartrate 5 Mg/5 Ml Sdv IVPUSH 07/01/21 01:04 2.5 mg ONETIME ONE Administration - Radiology Interpretation Free Text/Narrative:: no infiltrate seen, increase vascular markings central consistent with viral type process. preliminary read only - Re-Assessments/Exams Free Text/Narrative Re-Assessment/Exam: Patient presents with persistent cough, palpitations, a fib with RVR. Will put in isolation, check for covid and influenza due to unvaccinated status, start IV fluids to see if this helps with rate control and give metoprolol 2.5 mg IVP as blood pressure has some room at 150/100. 07/01/21 01:26 blood pressure 120/80 after the metoprolol, rate slightly improved at105. Sats are normal. afebrile. rate dose increase with ambulation and coughing. 07/01/21 01:42 age adjusted ddimer is unlikely ( for her age is .73) and she is currently anticoagulated with no hypoxia. years criteria is negative for PE 07/01/21 02:15 has RSV, did ambulate her and rate is in 125 range. 93% on room air. discussed nebs, at home, will give budesonide and xopenex. One time dose of steroids here, solu medrol 125 mg IVP. return if worsening. call PCP tomorrow to discuss inr and breakthrough dose of metoprolol Departure - Departure Time of Disposition: 02:35 Disposition: Home, Self-Care 01 Condition: Good Clinical Impression: Atrial fibrillation with RVR, RSV (acute bronchiolitis due to respiratory syncytial virus) - Discharge Information Prescriptions: Budesonide 1 mg IH BID #30 ampul.neb Benzonatate [Tessalon Perles] 100 mg PO TID PRN #40 cap PRN Reason: Cough levalbuterol HCL [Xopenex] 0.63 mg IH Q4H PRN #60 ml PRN Reason: Dyspnea Instructions: Atrial Fibrillation, [id number], Respiratory Syncytial Virus Infection, Adult, How to Use a Nebulizer, Adult Forms: ED Department Discharge Additional Instructions: Your INR is 2.0. Contact your physician's office to see if they would like to recheck it in the short term or change dose ( therapeutic is 2.0-2.5). No signs of heart failure or heart attack are noted. NO signs of pneumonia You were given a small dose of your metoprolol in the IV for rate control. you were also given a 12.5 mg oral dose on top of your regular dose. Your heart rate is being affected by your viral lung infection. You can take 1/2 tablet of the metoprolol if you note the palpitations and a heart rate greater than 120 at home. White count is normal. Take your verapamil in the morning and after one hour you can take the 12.5 mg dose of Metoprol if the heart rate is greater than 120. Note that taking extra metoprolol may make your blood pressure lower, recheck this and be cautious about lightheadedness that can occur. Take your regular dose of metoprolol and warfarin along with your other regular medications You have RSV, this is a viral lung infection and conservative care is required. You were given one dose of IV steroids in the ED. You are prescribed a nebulizer, this can be picked up at the pharmacy tomorrow. Call the ED with problems locating one. You are given two medications to use in the nebulizer to help with your cough and breathing. Use the budesonide every 12 hours and space it out from the other medication by 2 hours if possible. The Xopenex or levalbuterol can be every 4 hours as needed for cough, shortness or breath or chest tightness. These medications may brief cause an elevation of your heart rate. monitor this. You are prescribed tessalon perrles. These can be taken three times a day for cough as needed. Use caution with over the counter cough and cold preparations as they can cause elevation of heart rate and blood pressure Return to the ED for chest pain, worsening shortness of breath, heart rate of greater than 130 that is sustained ( not improved with rest). Sepsis Event Note (ED) - Focused Exam Vital Signs: Vital Signs Temp Pulse Pulse Resp BP BP Pulse Ox 07/01/21 02:19 122 H 121/74 07/01/21 01:57 114 H 14 121/74 91 L 07/01/21 01:17 126 H 152/73 H 07/01/21 00:45 36.6 C 126 H 30 H 151/128 H 96 - My Orders Last 24 Hours: My Active Orders 07/01/21 00:52 Cardiac Monitoring [RC] . DIRECTED Sodium Chloride 0.9% [Saline Flush] 10 ml FLUSH ASDIRECTED PRN Peripheral IV Insertion Adult [OM.PC] Routine 07/01/21 00:53 Isolation [COMM] Routine 07/01/21 01:43 Chest 2V [CR] Stat - Assessment/Plan Last 24 Hours: My Active Orders 07/01/21 00:52 Cardiac Monitoring [RC] . DIRECTED Sodium Chloride 0.9% [Saline Flush] 10 ml FLUSH ASDIRECTED PRN Peripheral IV Insertion Adult [OM.PC] Routine 07/01/21 00:53 Isolation [COMM] Routine 07/01/21 01:43 Chest 2V [CR] Stat
[2021-07-01 01:49] LABS: ANION GAP 17.9 mmol/L (5-15); CHLORIDE,CL 104 mmol/L (98-107); SODIUM,NA 142 mmol/L (136-145)
[2021-07-01 01:52] LABS: CORONAVIRUS COVID-19 NAA NEGATIVE (NEGATIVE)
[2021-07-01 01:53] LABS: RESPIRATORY SYNCYTIAL VIR NAA POSITIVE (NEGATIVE)
[2021-07-01] MEDS ORDERED: Metoprolol Succinate 25 MG Tab.ER PO ONE (02:08)
[2021-07-01] MEDS ORDERED: methylPREDNISolone Sodium Succinate 125 MG/2 ML SDV IVPUSH ONE (02:23)
[2021-07-01 03:06] VITALS: BP 110/77; PULSE 100
--- NOTE | 2021-07-01 08:43 | CR ---
[id number] RAD/RAD Chest PA And Lateral EXAM: RAD Chest PA And Lateral INDICATION: COUGH COMPARISON: May 31, 2019. DISCUSSION: Cardiomediastinal silhouette is normal in size and contour. No infiltrate, effusion, pneumothorax, or edema. Pulmonary hyperinflation. Numerous surgical clips overlying the left axilla and hemithorax. IMPRESSION: No acute cardiopulmonary abnormality. Shorty Martell DO 07/01/21 0842 Thank you for allowing us to participate in the care of your patient.
== END 2021-07-01 03:04 | disposition home or self-care (01) ==
LOC: VM.ED 00:40
DX: I48.91 Unspecified atrial fibrillation (principal); J21.0 Acute bronchiolitis due to respiratory syncytial virus; I10 Essential (primary) hypertension; E78.00 Pure hypercholesterolemia, unspecified; E66.9 Obesity, unspecified; Z68.34 Body mass index [BMI] 34.0-34.9, adult; Z88.8 Allergy status to other drugs, medicaments and biological substances; Z88.6 Allergy status to analgesic agent; Z79.899 Other long term (current) drug therapy; Z79.01 Long term (current) use of anticoagulants; Z20.822 Contact with and (suspected) exposure to COVID-19
CPT/HCPCS: 0241U; 71046; 80053; 81001; 83605; 83880; 84443; 84484; 85025; 85379; 85610; 86140; 93005; 96374; 96375; 99285-25; A9270-GY; J2930; J3490; J7030

== ENCOUNTER 2021-07-18 05:19 | Emergency (ER) | payer MEDICARE, OTHER ==
--- NOTE | 2021-07-18 05:43 | EDM.PDOC ---
ED HPI GENERAL MEDICAL PROBLEM - General Chief Complaint: Cardiovascular Problem Stated Complaint: palpitations Time Seen by Provider: 07/18/21 05:19 Source of Information: Reports: Patient, Family History Limitations: Reports: No Limitations - History of Present Illness INITIAL COMMENTS - FREE TEXT/NARRATIVE: Patient presents to the ED for palpitations, feeling skipped beats adn worried she is in Atrial fibrillation. She has a history of this, has been on her medications without skipped doses, no alcohol use. She state her daughter just got out of the hospital from a hernia surgery and she is staying with them. This is stressful for the patient and she has a history of anxiety and need for medication with this. She was last on alprazolam in May She was up at midnight helping her daughter and went back to bed. She felt fine at the time. She then got up at 5 am, used the bathroom and felt palpitations. She checked her heart rhythm and it was regular and 90. She became worried and came to the ED,. At triage her rate is regular and 69. - Related Data Allergies Allergy/AdvReac Type Severity Reaction Status Date / Time ezetimibe [From Zetia] Allergy Other Verified 07/06/20 05:16 ibuprofen Allergy Tachycardia Verified 07/06/20 05:16 atorvastatin [From Lipitor] AdvReac Muscle Verified 07/06/20 05:16 Aches Home Meds: Home Meds ALPRAZolam [Xanax] 0.25 mg PO TID PRN 07/19/16 [History] Calcium Carbonate/Vitamin D3 [Calcium 500-Vit D3 200 Caplet] 1 tab PO DAILY 03/27 [History] Cyanocobalamin (Vitamin B-12) [Vitamin B-12] 500 mcg PO DAILY 07/19/16 [History] Pravastatin [Pravachol] 80 mg PO Q48H 07/19/16 [History] SUMAtriptan [Imitrex] 50 mg PO Q2HR PRN MDD 100 mg 07/19/16 [History] Verapamil [Calan SR] 240 mg PO DAILY 07/19/16 [History] Ferrous Gluconate [Iron] 236 mg PO DAILY 11/29/18 [History] Acetaminophen [Acetaminophen Extra Strength] 250 mg PO Q4H PRN 05/31/19 [History] Acetaminophen/Diphenhydramine [Acetaminophen-Diphenhyd 500-25] 2 tab PO BEDTIME PRN 05/31/19 [History] Melatonin 3 mg PO BEDTIME 05/31/19 [History] Triamcinolone Acetonide [Nasacort] 2 spray NASBOTH BID 06/04/19 [History] Warfarin [Coumadin] 5 mg PO ASDIRECTED 06/25/20 [History] Fish Oil/Burwell-3 Fatty Acids [Fish Oil 1,000 MG] 1 each PO DAILY 07/06/20 [History] Metoprolol Succinate [Toprol XL] 25 mg PO DAILY 07/06/20 [History] Benzonatate [Tessalon Perles] 100 mg PO TID PRN #40 cap 07/01/21 [Rx] Budesonide 1 mg IH BID #30 ampul.neb 07/01/21 [Rx] levalbuterol HCL [Xopenex] 0.63 mg IH Q4H PRN #60 ml 07/01/21 [Rx] Past Medical History HEENT History: Reports: Sinusitis Other HEENT History: Benign Paroxysmal Vertigo Cardiovascular History: Reports: Afib, High Cholesterol, Hypertension Respiratory History: Reports: Other (See Below) Other Respiratory History: Chronic pharyngitis Gastrointestinal History: Reports: Chronic Constipation, Diverticulosis, GERD, Hiatal Hernia Genitourinary History: Reports: Other (See Below) Other Genitourinary History: overactive bladder. incontinence Other [employer] History: hysterctomy Musculoskeletal History: Reports: Arthritis, Osteoarthritis Other Musculoskeletal History: Primary osteoarthritis of right knee. Disorder of bone and cartilage Neurological History: Reports: Migraines, Vertigo Other Neuro History: Migraines with aura and without status migrainosus, not intractable. Primary Insomnia Psychiatric History: Reports: Anxiety Other Psychiatric History: Moderate episode of recurrent major depressive disorder (HCC) Endocrine/Metabolic History: Reports: Obesity/BMI 30+ Other Endocrine/Metabolic History: "I have hypoglycemia" Hematologic History: Reports: Other (See Below) Other Hematologic History: Positive TOM (antinuclear antibody) Oncologic (Cancer) History: Reports: Breast Other Oncologic History: left - Infectious Disease History Infectious Disease History: Reports: Chicken Pox, Mumps - Past Surgical History HEENT Surgical History: Reports: Tonsillectomy GI Surgical History: Reports: Appendectomy, Hernia Repair/Other Female Surgical History: Reports: Hysterectomy Musculoskeletal Surgical History: Reports: Arthroscopic Knee, Knee Replacement Oncologic Surgical History: Reports: Lumpectomy, Mastectomy Social & Family History - Family History Family Medical History: No Pertinent Family History Cardiac: Reports: CAD, [place] Endocrine/Metabolic: Reports: Diabetes, type II Immunologic: Reports: None - Caffeine Use Caffeine Use: Reports: None - Living Situation & Occupation Living situation: Reports: with Spouse ED ROS GENERAL - Review of Systems Review Of Systems: See Below Constitutional: Reports: No Symptoms HEENT: Reports: No Symptoms Respiratory: Reports: No Symptoms Cardiovascular: Reports: Palpitations. Denies: Chest Pain, Blood Pressure Problem, Claudication GI/Abdominal: Reports: No Symptoms : Reports: No Symptoms Musculoskeletal: Reports: No Symptoms Skin: Reports: No Symptoms Neurological: Reports: No Symptoms ED EXAM, GENERAL - Physical Exam Exam: See Below Exam Limited By: No Limitations General Appearance: Alert, WD/WN, No Apparent Distress Eye Exam: Bilateral Eye: EOMI, Normal Inspection, PERRL Nose: Normal Inspection, Normal Mucosa, No Blood Throat/Mouth: Normal Inspection, Normal Lips, Normal Voice, No Airway Compromise Head: Atraumatic Neck: Normal Inspection Respiratory/Chest: No Respiratory Distress, Lungs Clear, Normal Breath Sounds, No Accessory Muscle Use, Chest Non-Tender Cardiovascular: Normal Peripheral Pulses, Regular Rate, Rhythm, No Edema #1 Interpretation EKG Date: 07/18/21 Time: 05:09 Rhythm: NSR Gilbert: Normal QRS: LBBB ST-T: Normal QT: Normal Course - Vital Signs Last Recorded V/S: Last Vital Signs Temp 36.2 C 07/18/21 05:46 Pulse 95 07/18/21 05:46 Resp 18 07/18/21 05:46 BP 152/68 H 07/18/21 05:46 Pulse Ox 95 07/18/21 05:46 - Orders/Labs/Meds Orders: Active Orders 24 hr Category Date Time Status Cardiac Monitoring [RC] . DIRECTED Care 07/18/21 05:19 Active Chest 2V [CR] Stat Exams 07/18/21 05:19 Stop Req - Re-Assessments/Exams Free Text/Narrative Re-Assessment/Exam: 07/18/21 0545 discussed with patient that she is rate controlled, in a NSR. Discussed her stress, and the need for possible alprazolam as needed for panic attacks. offered medical evaluation, but she declined. offered return at any time. prefers to go back home. Departure - Departure Time of Disposition: 05:36 Disposition: Home, Self-Care 01 Condition: Good Clinical Impression: Palpitations Instructions: Palpitations, [id number] Forms: ED Department Discharge Additional Instructions: Your heart rate is stable between 60-70 and in a sinus rhythm. You were offered medical evaluation but the episode could have been palpitations or a short run of irregular rhythm. Continue your rate control medications and coumadin. Follow up with your PCP. Consider using your alprazolam as needed for anxiety but discuss with your pcp Sepsis Event Note (ED) - Focused Exam Vital Signs: Vital Signs Temp Pulse Resp BP Pulse Ox 07/18/21 05:46 36.2 C 95 18 152/68 H 95 - My Orders Last 24 Hours: My Active Orders 07/18/21 05:19 Cardiac Monitoring [RC] . DIRECTED Chest 2V [CR] Stat - Assessment/Plan Last 24 Hours: My Active Orders 07/18/21 05:19 Cardiac Monitoring [RC] . DIRECTED Chest 2V [CR] Stat
[2021-07-18 06:01] VITALS: BP 152/68; PULSE 95
== END 2021-07-18 05:53 | disposition home or self-care (01) ==
LOC: VM.ED 05:19
DX: R00.2 Palpitations (principal); I48.91 Unspecified atrial fibrillation; E78.00 Pure hypercholesterolemia, unspecified; I10 Essential (primary) hypertension; M19.90 Unspecified osteoarthritis, unspecified site; E66.9 Obesity, unspecified; Z68.30 Body mass index [BMI] 30.0-30.9, adult; Z88.8 Allergy status to other drugs, medicaments and biological substances; Z79.899 Other long term (current) drug therapy; Z79.01 Long term (current) use of anticoagulants
CPT/HCPCS: 99285-25

== ENCOUNTER 2021-08-18 08:48 | Emergency (ER) | payer MEDICARE, OTHER ==
[2021-08-18 09:07] VITALS: BP 99/63; PULSE 106
[2021-08-18 09:46] LABS: ANION GAP 10.9 mmol/L (5-15); CHLORIDE,CL 102 mmol/L (98-107); SODIUM,NA 136 mmol/L (136-145)
[2021-08-18] MEDS ORDERED: Sodium Chloride 0.9% 1,000 ML IV ONE (10:35)
== END 2021-08-18 10:47 | disposition home or self-care (01) ==
LOC: VM.ED 08:48
DX: I48.91 Unspecified atrial fibrillation (principal); R19.7 Diarrhea, unspecified; E78.00 Pure hypercholesterolemia, unspecified; I10 Essential (primary) hypertension; E66.9 Obesity, unspecified; Z68.33 Body mass index [BMI] 33.0-33.9, adult; Z88.6 Allergy status to analgesic agent; Z88.8 Allergy status to other drugs, medicaments and biological substances; Z79.899 Other long term (current) drug therapy; Z79.01 Long term (current) use of anticoagulants
CPT/HCPCS: 80048; 82947; 85610; 93005; 93010; 99284; 99285-25; J7030

== ENCOUNTER 2022-10-06 08:41 | Emergency (ER) | payer MEDICARE, OTHER ==
[2022-10-06 09:34] LABS: CHLORIDE,CL 106 mmol/L (98-107); SODIUM,NA 141 mmol/L (136-145)
[2022-10-06 09:36] LABS: ANION GAP 13.9 mmol/L (5-15); ESTIMATED GFR 77 mL/min (>=60)
[2022-10-06 10:17] VITALS: BP 142/72; PULSE 78
== END 2022-10-06 10:05 | disposition home or self-care (01) ==
LOC: SUPCPDRO 08:41 → VM.ED 08:41
DX: I48.91 Unspecified atrial fibrillation (principal); N39.0 Urinary tract infection, site not specified; E78.00 Pure hypercholesterolemia, unspecified; I10 Essential (primary) hypertension; M19.90 Unspecified osteoarthritis, unspecified site; E66.9 Obesity, unspecified; Z68.41 Body mass index [BMI] 40.0-44.9, adult; Z88.8 Allergy status to other drugs, medicaments and biological substances; Z88.6 Allergy status to analgesic agent; Z79.899 Other long term (current) drug therapy
CPT/HCPCS: 71046; 80053; 81001; 82550; 83605; 83615; 83735; 84145; 84484; 85025; 85610; 87086; 87088; 87186; 93005; 93010; 99284; 99285

== ENCOUNTER 2022-11-19 10:44 | Emergency (ER) | payer MEDICARE, OTHER ==
[2022-11-19] MEDS ORDERED: HYDROmorphone 1 MG/ML Syringe SUBCUT ONE (11:00)
[2022-11-19] MEDS ORDERED: Sodium Chloride 0.9% 10 ML Syringe FLUSH PRN (12:06)
[2022-11-19] MEDS ORDERED: Ondansetron 4 MG/2 ML SDV IVPUSH ONE (12:16)
[2022-11-19 12:27] LABS: BASOPHILS PERCENT AUTO 0.4 % (0.2-1.2); EOSINOPHILS PERCENT AUTO 0.3 % (0.0-4.0); HEMATOCRIT 43.4 % (33.0-47.0); HEMOGLOBIN 14.8 g/dL (12.0-16.0); IMMATURE GRAN ABSOLUTE AUTO 0.02 x10^3/uL (0.00-0.07); LYMPHOCYTES ABSOLUTE AUTO 1.7 x10^3/uL (1.0-4.8); LYMPHOCYTES PERCENT AUTO 23.1 % (25.0-50.0); MEAN CORPUSCULAR HEMOGLOBIN 31.9 pg (26.0-32.0); MEAN CORPUSCULAR HGB CONC 34.1 g/dL (32.0-36.0); MEAN CORPUSCULAR VOLUME 93.5 fL (78.0-93.0); MONOCYTES ABSOLUTE AUTO 0.6 x10^3/uL (0.0-0.8); MONOCYTES PERCENT AUTO 7.9 % (2.0-11.0); PLATELET COUNT,PLT 216 x10^3/uL (130-400); RED BLOOD CELL COUNT 4.64 x10^6/uL (4.00-5.50); WHITE BLOOD CELL COUNT,WBC 7.3 x10^3/uL (4.0-10.0)
[2022-11-19 12:52] LABS: LACTIC ACID 0.9 mmol/L (0.4-2.0)
[2022-11-19 12:59] LABS: A/G RATIO 1.16; ALBUMIN 3.7 g/dL (3.4-5.0); ANION GAP 14.6 mmol/L (5-15); BILIRUBIN TOTAL 0.5 mg/dL (0.2-1.0); C-REACTIVE PROTEIN 0.7 mg/dL (<=0.9); CALCIUM 9.7 mg/dL (8.5-10.1); CREATININE 0.8 mg/dL (0.55-1.02); EST CRCL DRUG DOSING (CG) 55.52 mL/min; MAGNESIUM 2.2 mg/dL (1.8-2.4); PHOSPHORUS 3.2 mg/dL (2.6-4.7); POTASSIUM,K 3.6 mmol/L (3.5-5.1); PROTEIN TOTAL,TP 6.9 g/dL (6.4-8.2); PROTHROMBIN TIME 30.9 SEC (9.5-12.2); PTT,PARTIAL THROMBOPLSTIN TIME 41.9 SEC (23.6-33.6); TSH ULTRASENSITIVE 0.416 uIU/mL (0.358-3.74)
[2022-11-19 14:25] VITALS: BP 140/72; PULSE 64
== END 2022-11-19 13:45 | disposition home or self-care (01) ==
LOC: VM.ED 10:44
DX: G44.86 Cervicogenic headache (principal); I48.91 Unspecified atrial fibrillation; E78.00 Pure hypercholesterolemia, unspecified; I10 Essential (primary) hypertension; M19.90 Unspecified osteoarthritis, unspecified site; E66.9 Obesity, unspecified; Z88.8 Allergy status to other drugs, medicaments and biological substances; Z79.01 Long term (current) use of anticoagulants; Z79.899 Other long term (current) drug therapy; Z68.33 Body mass index [BMI] 33.0-33.9, adult
CPT/HCPCS: 70450; 71046; 72125; 80053; 83605; 83735; 84100; 84443; 84484; 85025; 85379; 85610; 85730; 86140; 87040; 93005; 94760; 96372; 96374; 99284; J1170; J2405

== ENCOUNTER 2022-11-20 11:42 | Emergency (ER) | payer MEDICARE, OTHER ==
[2022-11-20] MEDS: Orphenadrine 60 MG/2 ML Inj IM ONE (12:37)
[2022-11-20 13:09] VITALS: BP 152/78; PULSE 68
== END 2022-11-20 13:00 | disposition home or self-care (01) ==
LOC: VM.ED 11:42
DX: M43.6 Torticollis (principal); I48.91 Unspecified atrial fibrillation; E78.00 Pure hypercholesterolemia, unspecified; I10 Essential (primary) hypertension; E66.9 Obesity, unspecified; Z68.33 Body mass index [BMI] 33.0-33.9, adult; Z79.01 Long term (current) use of anticoagulants; Z79.899 Other long term (current) drug therapy; Z88.8 Allergy status to other drugs, medicaments and biological substances
CPT/HCPCS: 93005; 96372; 99284; J2360; 93010

== ENCOUNTER 2022-12-12 14:27 | Emergency (ER) | payer MEDICARE, OTHER ==
[2022-12-12] MEDS ORDERED: Sodium Chloride 0.9% 10 ML Syringe FLUSH PRN (14:59)
[2022-12-12 15:10] LABS: BASOPHILS PERCENT AUTO 0.1 % (0.2-1.2); EOSINOPHILS ABSOLUTE AUTO 0.1 x10^3/uL (0.0-0.5); EOSINOPHILS PERCENT AUTO 0.8 % (0.0-4.0); HEMATOCRIT 41.4 % (33.0-47.0); HEMOGLOBIN 14.5 g/dL (12.0-16.0); IMMATURE GRAN ABSOLUTE AUTO 0.01 x10^3/uL (0.00-0.07); LYMPHOCYTES ABSOLUTE AUTO 1.3 x10^3/uL (1.0-4.8); LYMPHOCYTES PERCENT AUTO 16.6 % (25.0-50.0); MEAN CORPUSCULAR VOLUME 91.4 fL (78.0-93.0); MONOCYTES ABSOLUTE AUTO 0.6 x10^3/uL (0.0-0.8); MONOCYTES PERCENT AUTO 7.5 % (2.0-11.0); NEUTROPHILS ABSOLUTE AUTO 5.7 x10^3/uL (1.8-7.7); NEUTROPHILS PERCENT AUTO 74.9 % (50.0-80.0); PLATELET COUNT,PLT 222 x10^3/uL (130-400); RED BLOOD CELL COUNT 4.53 x10^6/uL (4.00-5.50); WHITE BLOOD CELL COUNT,WBC 7.7 x10^3/uL (4.0-10.0)
[2022-12-12 15:17] LABS: APPEARANCE,URINE CLEAR (CLEAR); BILIRUBIN,URINE NEGATIVE (NEGATIVE); COLOR,URINE LIGHT YELLOW (YELLOW); GLUCOSE,URINE NEGATIVE (NEGATIVE); KETONES,URINE NEGATIVE (NEGATIVE); LEUKOCYTE ESTERASE,URINE NEGATIVE (NEGATIVE); NITRITE,URINE NEGATIVE (NEGATIVE); OCCULT BLOOD,URINE SMALL (NEGATIVE); PROTEIN,URINE NEGATIVE (NEGATIVE); UROBILINOGEN,URINE 0.2 EU/dL (0.2)
[2022-12-12 15:19] LABS: BACTERIA,URINE RARE /HPF (NOT SEEN); MUCUS,URINE NOT SEEN /LPF (NOT SEEN); SQUAMOUS EPITHELIAL CELLS,UR RARE /HPF (NOT SEEN); WBC,URINE NOT SEEN /HPF (NOT SEEN)
[2022-12-12 15:41] LABS: A/G RATIO 1.16; ALANINE AMINOTRANSFERASE,ALT 31 U/L (14-59); ALBUMIN 3.6 g/dL (3.4-5.0); ALKALINE PHOSPHATASE 89 U/L (46-116); ANION GAP 13.8 mmol/L (5-15); ASPARTATE AMNIOTRANSFERASE,AST 18 U/L (15-37); BILIRUBIN TOTAL 0.5 mg/dL (0.2-1.0); BLOOD UREA NITROGEN,BUN 16 mg/dL (7-18); C-REACTIVE PROTEIN 0.2 mg/dL (<=0.9); CALCIUM 9.9 mg/dL (8.5-10.1); CARBON DIOXIDE,CO2 26 mmol/L (21-32); CHLORIDE,CL 103 mmol/L (98-107); CREATININE 0.7 mg/dL (0.55-1.02); ESTIMATED GFR 90 mL/min (>=60); GLUCOSE RANDOM 110 mg/dL (70-99); MAGNESIUM 1.9 mg/dL (1.8-2.4); PHOSPHORUS 3.5 mg/dL (2.6-4.7); POTASSIUM,K 3.8 mmol/L (3.5-5.1); PROTEIN TOTAL,TP 6.7 g/dL (6.4-8.2); SODIUM,NA 139 mmol/L (136-145); TSH ULTRASENSITIVE 0.407 uIU/mL (0.358-3.74)
[2022-12-12 21:22] VITALS: BP 182/69; PULSE 66
== END 2022-12-12 16:15 | disposition home or self-care (01) ==
LOC: VM.ED 14:27
CPT/HCPCS: 74022; 80053; 81001; 83735; 84100; 84443; 84484; 85025; 86140; 93005; 93010; 99284; 99285

== ENCOUNTER 2024-08-03 05:15 | Emergency (ER) | payer MEDICARE, OTHER ==
[2024-08-03] MEDS: Metoprolol Tartrate 5 MG/5 ML SDV IVPUSH ONE (06:16)
[2024-08-03 06:21] LABS: BASOPHILS PERCENT AUTO 0.4 % (0.2-1.2); EOSINOPHILS ABSOLUTE AUTO 0.1 x10^3/uL (0.0-0.5); EOSINOPHILS PERCENT AUTO 1.1 % (0.0-4.0); HEMATOCRIT 44.3 % (33.0-47.0); HEMOGLOBIN 15.3 g/dL (12.0-16.0); IMMATURE GRAN ABSOLUTE AUTO 0.01 x10^3/uL (0.00-0.07); LYMPHOCYTES ABSOLUTE AUTO 1.1 x10^3/uL (1.0-4.8); MEAN CORPUSCULAR HGB CONC 34.5 g/dL (32.0-36.0); MEAN CORPUSCULAR VOLUME 92.7 fL (78.0-93.0); MONOCYTES ABSOLUTE AUTO 0.5 x10^3/uL (0.0-0.8); MONOCYTES PERCENT AUTO 10.9 % (2.0-11.0); NEUTROPHILS PERCENT AUTO 63.4 % (50.0-80.0); PLATELET COUNT,PLT 179 x10^3/uL (130-400); RED BLOOD CELL COUNT 4.78 x10^6/uL (4.00-5.50); WHITE BLOOD CELL COUNT,WBC 4.8 x10^3/uL (4.0-10.0)
[2024-08-03 06:40] LABS: INR 2.3 (0.9-1.1); PTT,PARTIAL THROMBOPLSTIN TIME 39.9 SEC (23.5-33.2)
[2024-08-03] MEDS: Metoprolol Succinate 50 MG Tab.ER PO ONE (06:40)
[2024-08-03 06:43] VITALS: BP 139/67; PULSE 66
[2024-08-03 06:52] LABS: ALBUMIN 3.3 g/dL (3.4-5.0); ANION GAP 14.5 mmol/L (5-15); BILIRUBIN TOTAL 0.7 mg/dL (0.2-1.0); CALCIUM 9.3 mg/dL (8.5-10.1); CREATININE 0.7 mg/dL (0.55-1.02); EST CRCL DRUG DOSING (CG) 61.52 mL/min; MAGNESIUM 1.9 mg/dL (1.8-2.4); POTASSIUM,K 3.5 mmol/L (3.5-5.1); PROTEIN TOTAL,TP 6.6 g/dL (6.4-8.2); TSH ULTRASENSITIVE 0.537 uIU/mL (0.358-3.74)
== END 2024-08-03 07:08 | disposition home or self-care (01) ==
LOC: VM.ED 05:15
DX: I48.91 Unspecified atrial fibrillation (principal); I10 Essential (primary) hypertension; E78.00 Pure hypercholesterolemia, unspecified; E66.9 Obesity, unspecified; Z90.49 Acquired absence of other specified parts of digestive tract; Z90.710 Acquired absence of both cervix and uterus; Z79.899 Other long term (current) drug therapy; Z79.01 Long term (current) use of anticoagulants; Z88.6 Allergy status to analgesic agent; Z88.8 Allergy status to other drugs, medicaments and biological substances; Z68.41 Body mass index [BMI] 40.0-44.9, adult
CPT/HCPCS: 80053; 83735; 84443; 84484; 85025; 85610; 85730; 93005; 93010; 96374; 99284; 99285-25; A9270-GY; J3490